=== PATIENT | male | born 1965 | race Caucasian/White ===

== ENCOUNTER 2023-03-16 19:13 | Emergency (ER) | payer MEDICARE, SELFPAY ==
[2023-03-16 19:13] VITALS: BP 163/119; PULSE 121; RESP 16; TEMP 36.8; O2SAT 96; BMI 31.3
--- NOTE | 2023-03-16 19:20 | ECG_ITS ---
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 Measurements Intervals [place] Rate: 114 P: 55 IA: 151 QRS: 61 QRSD: 86 T: 66 QT: 310 QTc: 427 Interpretive Statements SINUS TACHYCARDIA No previous ECG available for comparison Electronically Signed On 03-16-2023 20:24:07 CDT by Negrito Proctor M.D. [id number]
--- NOTE | 2023-03-16 19:20 | XRR_ITS ---
PROCEDURE INFORMATION: Exam: XR Chest Exam date and time: 03/16/2023 7:36 PM Age: 57 years old Clinical indication: Pain; Chest pressure; Additional info: Cp TECHNIQUE: Imaging protocol: Radiologic exam of the chest. Views: 1 view. COMPARISON: No relevant prior studies available. FINDINGS: Lungs: Unremarkable. No consolidation. Pleural spaces: Unremarkable. No pleural effusion. No pneumothorax. Heart/Mediastinum: Unremarkable. No cardiomegaly. Bones/joints: Unremarkable. XR/XR chest 1V portable 18500 IMPRESSION: No acute findings.
--- NOTE | 2023-03-16 19:28 | ED_ITS ---
HPI - Chest Pain General: Chief Complaint: Chest Pain Stated Complaint: CP Time Seen by Provider: 03/16/23 19:21 History of Present Illness: Patient is a 57-year-old male comes to the ED with chest pain. Symptoms started last night while at rest. Patient says he was sitting on his porch and drinking some alcohol. He states that he got upset a little with his and that is when his chest pain started. He describes the chest pain as a pressure. He took a nitro today it was still having some chest pressure and then called EMS. EMS gave him 325 mg of aspirin and 2 doses of nitro while in route and his chest pain is completely resolved. Here in the ED he states he has no chest pain or chest pressure. Denies any shortness of breath, palpitations, fevers, chills, abdominal pain, nausea/vomiting, bladder or bowel symptoms. Patient is a tobacco smoker and has a [id number] history. Patient also endorses that he smokes marijuana daily and used marijuana last night. Has a history of hypertension and states that he does not have any blood pressure medications. Patient also states that he has had 5 cardiac stents placed a little over a year ago while down in [place]. Associated symptoms: Deny abdominal pain, dyspnea, fever(s), nausea, palpitations or vomiting Review of Systems Const: Denies: fever(s), chills or fatigue Eyes: Denies: change in vision or eye discomfort ENMT: Denies: throat pain, odynophagia, nasal discharge or nasal congestion Card: Reports: chest pain (Resolved before arriving to ED); Denies: palpitations, edema, swelling of feet/ankles, dyspnea on exertion or orthopnea Resp: Denies: dyspnea, productive cough or non-productive cough GI: Denies: abdominal pain, nausea, vomiting, diarrhea, constipation or hematochezia : Denies: flank pain, difficulty urinating, dysuria or hematuria Musc: Denies: neck pain, back pain or extremity swelling Skin/Breast: Denies: rash or new lesions Neuro: Denies: headache(s), numbness in extremities or weakness in extremities [facility] ED PFSH: Medical History Hypertension Surgical History Hx of heart artery stent Physical Exam Const: COMMON NORMALS: patient oriented x3 and alert GENERAL APPEARANCE: cooperative HENMT: COMMON NORMALS: normocephalic HEAD & SCALP: normocephalic MOUTH: Normal oral and palatal mucosa present THROAT: posterior oropharynx normal and uvula midline Neck/C-Spine: COMMON NORMALS: supple GENERAL: Yes normal visual inspection Resp: COMMON NORMALS: normal respiratory effort, No retractions, No use of accessory muscles and clear to auscultation bilaterally AUSCULTATION: clear to auscultation bilaterally Cardio: COMMON NORMALS: regular rate, regular rhythm, S1 normal heart sound present, S2 normal heart sound present, No gallops present (Cardio), No clicks present (Cardio), No murmurs present (Cardio) and Peripheral pulses 2+ throughout RATE: regular rate RHYTHM: regular rhythm HEART SOUNDS: S1 normal heart sound present and S2 normal heart sound present PERIPHERAL PULSE S: Peripheral pulses 2+ throughout GI: COMMON NORMALS: Normal to inspection, nondistended, normoactive bowel sounds present, Soft to palpation, non-tender and no masses PALPATION: Yes Soft to palpation : COMMON NORMALS: Yes no CVA tenderness BLADDER/KIDNEY EXAM: Yes no CVA tenderness Back/Pelvis: COMMON NORMALS: no CVA tenderness Extremity: COMMON NORMALS: normal to inspection Neuro: COMMON NORMALS: patient oriented x3 SENSORIUM/ORIENTATION: Yes alert GAIT: Yes Normal gait present Skin: GENERAL SKIN EXAM: dry skin Course Vital Signs: Vital signs: Vital Signs Temperature 98.2 F 03/16/23 19:13 Pulse Rate 94 03/16/23 22:35 Respiratory Rate 16 03/16/23 22:35 Blood Pressure 129/86 03/16/23 22:35 Pulse Oximetry 96 03/16/23 22:35 Oxygen Delivery Me thod Room Air 03/16/23 22:35 MDM - Chest Pain Medical Decision Making Patient is a 57-year-old male comes to the ED with chest pain. Symptoms started last night while at rest. Patient says he was sitting on his porch and drinking some alcohol. He states that he got upset a little with his and that is when his chest pain started. He describes the chest pain as a pressure. He took a nitro today it was still having some chest pressure and then called EMS. EMS gave him 325 mg of aspirin and 2 doses of nitro while in route and his chest pain is completely resolved. Here in the ED he states he has no chest pain or chest pressure. Denies any shortness of breath, palpitations, fevers, chills, abdominal pain, nausea/vomiting, bladder or bowel symptoms. Patient is a tobacco smoker and has a [id number] history. Patient also endorses that he smokes marijuana daily and used marijuana last night. Has a history of hypertension and states that he does not have any blood pressure medications. Patient also states that he has had 5 cardiac stents placed a little over a year ago while down in [place]. Vitals are stable. Exam of patient is benign. CBC and CMP are unremarkable. Troponins negative. EKG showed sinus tachycardia in 105 bpm, no ST segment elevation or depression seen. BNP was normal. Patient u rine drug screen was positive for marijuana and blood alcohol level was 256. Patient was given half a liter of IV fluids and was stable for discharge home. He was diagnosed with atypical chest pain and was discharged home with a prescription for Vistaril for acute anxiety. He was given strict return to ED precautions. Told to follow-up with his PCP within the next week for reevaluation. Patient understood and agreed with plan. Lab Data I reviewed the patient's lab results. 03/16/23 19:20 03/16/23 19:20 Radiology Impressions Chest X-Ray 03/16/23 19:20 IMPRESSION: No acute findings. Laboratory Results WBC 7.9 10^3/uL (4.0-10.0) 03/16/23 19:20 RBC 4.45 10^6/uL (4.1-5.3) 03/16/23 19:20 Hgb 14.5 g/dL (11.7-16.6) 03/16/23 19:20 Hct 44.1 % (42.0-52.0) 03/16/23 19:20 MCV 99.1 fl (80-94) H 03/16/23 19:20 MCH 32.6 pg (28.0-34.0) 03/16/23 19:20 MCHC 32.9 g/dL (30.0-36.0) 03/16/23 19:20 RDW 14.2 % (12.1-15.1) 03/16/23 19:20 Plt Count 285 10^3/cmm (130-400) 03/16/23 19:20 MPV 8.9 fL (7.4-10.4) 03/16/23 19:20 Neut % (Auto) 48.7 % 03/16/23 19:20 Lymph % (Auto) 42.3 % 03/16/23 19:20 [place] % (Auto) 6.6 % 03/16/23 19:20 Eos % (Auto) 1.8 % 03/16/23 19:20 Baso % (Auto) 0.5 % 03/16/23 19:20 Neut # (Auto) 3.83 10^3/uL (1.8-7.7) 03/16/23 19:20 Lymph # (Auto) 3.3 10^3/uL (0.8-4.8) 03/16/23 19:20 [place] # (Auto) 0.5 10^3/uL (0.2-0.9) 03/16/23 19:20 Eos # (Auto) 0.1 10^3/uL (0.0-0.8) 03/16/23 19:20 Baso # (Auto) 0.0 10^3/uL (0.0-0.1) 03/16/23 19:20 Nucleated RBC % (auto) 0 % 03/16/23 19: Nucleated RBCs # 0.0 /100WBC 03/16/23 19:20 Sodium 141 mmol/L (136-145) 03/16/23 19:20 Potassium 4.1 mmol/L (3.5-5.1) 03/16/23 19:20 Chloride 104 mmol/L (98-107) 03/16/23 19:20 Carbon Dioxide 23 mmol/L (22-29) 03/16/23 19:20 Anion Gap 18.1 (5-19) 03/16/23 19:20 BUN 10 mg/dL (6-20) 03/16/23 19:20 Creatinine 1.0 mg/dL (0.7-1.2) 03/16/23 19:20 GFR Calculation 77.0 mL/min (90-130) L 03/16/23 19:20 Glucose 78 mg/dL (65-115) 03/16/23 19:20 Calculated Osmolality 290 mOsm/kg (285-295) 03/16/23 19:20 Calcium 8.7 mg/dL (8.5-10.5) 03/16/23 19:20 Total Bilirubin 0.2 mg/dL (0.15-1.2) 03/16/23 19:20 AST 31 U/L (0-40) 03/16/23 19:20 ALT 36 U/L (0-41) 03/16/23 19:20 Alkaline Phosphatase 84 U/L (40-130) 03/16/23 19:20 Troponin T Baseline 9 ng/L (0-15) 03/16/23 19:20 Troponin T 120 Minute 9.09 ng/L (0-15) 03/16/23 22:13 Delta Troponin T 0.09 ABS# (0-10) 03/16/23 22:13 NT-Pro-B Natriuret Pep 36 pg/mL (0-125) 03/16/23 19:20 Total Protein 6.8 g/dL (6.6-8.7) 03/16/23 19:20 Albumin 4.1 g/dL (3.5-5.2) 03/16/23 19:20 Globulin 2.7 g/dL (1.3-4.6) 03/16/23 19:20 Urine Color Yellow (Yellow) 03/16/23 20: Urine Appearance Clear (CLEAR) 03/16/23 20:01 Urine pH 5 (5-7) 03/16/23 20:01 Ur Specific [place] 1.030 (1.005-1.030) 03/16/23 20:01 Urine Protein Neg (Negative) 03/16/23 20:01 Urine Glucose (UA) Norm (Normal) 03/16/23 20:01 Urine Ketones Negative (Negative) 03/16/23 20:01 Urine Blood Neg (Negative) 03/16/23 20:01 Urine Nitrate Negative (Negative) 03/16/23 20: Urine Bilirubin Neg (Negative) 03/16/23 20: Urine Urobilinogen Norm mg/dL (Negative) 03/16/23 20:01 Ur Leukocyte Esterase Negative (Negative) 03/16/23 20:01 Urine Opiates Screen Negative ng/mL (Negative) 03/16/23 20: Ur Barbiturates Screen Negative ng/mL (Negative) 03/16/23 20:01 Ur Phencyclidine Scrn Negative ng/mL (Negative) 03/16/23 20:01 Ur Amphetamines Screen Negative ng/mL (Negative) 03/16/23 20:01 U Benzodiazepines Scrn Negative ng/mL (Negative) 03/16/23 20:01 Urine Cocaine Screen Negative ng/mL (Negative) 03/16/23 20:01 U Marijuana (THC) Screen Positive ng/mL (Negative) H 03/16/23 20:01 Ethyl Alcohol 256 mg/dL (0-10) H 03/16/23 19:20 EKG Data EKG 1: EKG interpretation date: 03/16/23 Interpretation: Sinus tachycardia, 105 bpm, no ST segment elevation or depression seen. Discharge Plan Discharge Patient Disposition: Home Clinical Impression: Atypical chest pain Condition: Stable Prescriptions: New hydroxyzine pamoate 50 mg capsule 50 mg PO Q8H PRN (Reason: Acute anxiety) Qty: 20 0RF Discharge Orders: Discharge ED (Routine); Ordered 03/16/23 Ordered By: Cale Palomares Referrals: Lenard Pedro DO [Primary Care Provider] - Discharge Diet: Regular Discharge Activity: Increase activity as tolerated Patient Instructions: Chest Pain (ED) Activity Restrictions/Additional Instructions: Follow-up with medical provider as directed in the next 3 to 5 days for reevaluation. Take medications as prescribed. Return to the ER or your medical provider if condition worsens. Please read and understand discharge instructions. Thank you for choosing [facility] for your healthcare needs today. Please realize this is an emergency room and that we are providing you with a medical screening exam and this may not be complete and all inclusive of all the testing and or work up that you may need to determine your ailment or severity of your illness. It is very important that you follow up as instructed or that you return to the Emergency Department should you have concerns or if your condition changes or worsens in any way. Coding Level of Care Code ED Packaging Mechanic for Ryan Pratt
[2023-03-16 19:33] LABS: Basophils % 0.5 %; Eosinophils # 0.1 10^3/uL (0.0-0.8); Eosinophils % 1.8 %; Hematocrit 44.1 % (42.0-52.0); Hemoglobin 14.5 g/dL (11.7-16.6); Lymphocytes # 3.3 10^3/uL (0.8-4.8); Lymphocytes % 42.3 %; Mean Corpuscular HGB Conc 32.9 g/dL (30.0-36.0); Mean Corpuscular Hemoglobin 32.6 pg (28.0-34.0); Mean Corpuscular Volume 99.1 fl (80-94); Mean Platelet Volume 8.9 fL (7.4-10.4); Monocytes # 0.5 10^3/uL (0.2-0.9); Monocytes % 6.6 %; Neutrophils # 3.83 10^3/uL (1.8-7.7); Neutrophils % 48.7 %; Nucleated Red Blood Cells % 0 %; Platelet Count 285 10^3/cmm (130-400); Red Blood Count 4.45 10^6/uL (4.1-5.3); Red Cell Distribution Width 14.2 % (12.1-15.1); White Blood Count 7.9 10^3/uL (4.0-10.0)
[2023-03-16 19:46] LABS: Troponin(5th) Baseline 9 ng/L (0-15)
[2023-03-16 19:48] VITALS: BP 163/119; PULSE 119; RESP 16; O2SAT 96
[2023-03-16 19:56] LABS: Alanine Aminotransferase 36 U/L (0-41); Albumin Level 4.1 g/dL (3.5-5.2); Alkaline Phosphatase 84 U/L (40-130); Anion Gap 18.1 (5-19); Aspartate Amino Transferase 31 U/L (0-40); Blood Urea Nitrogen 10 mg/dL (6-20); Calcium 8.7 mg/dL (8.5-10.5); Carbon Dioxide 23 mmol/L (22-29); Chloride 104 mmol/L (98-107); Globulin 2.7 g/dL (1.3-4.6); Glucose 78 mg/dL (65-115); NT Pro B Type Natriuretic Pept 36 pg/mL (0-125); Osmolality Calculated 290 mOsm/kg (285-295); Potassium 4.1 mmol/L (3.5-5.1); Sodium 141 mmol/L (136-145); Total Bilirubin 0.2 mg/dL (0.15-1.2); Total Protein 6.8 g/dL (6.6-8.7)
[2023-03-16 20:06] LABS: Add Urine Microscopic? NO; Charge for UA Resulting for Rev
[2023-03-16 20:08] LABS: Bilirubin Urine Neg (Negative); Blood Urine Neg (Negative); Glucose Urine UA Norm (Normal); Ketones Urine Negative (Negative); Leukocyte Esterase Urine Negative (Negative); Nitrate Urine Negative (Negative); Protein Urine Neg (Negative); Urine Appearance Clear (CLEAR); Urine Color Yellow (Yellow); Urobilinogen Urine Norm (Negative); pH Urine 5 (5-7)
[2023-03-16 20:12] LABS: Alcohol Level 256 mg/dL (0-10)
[2023-03-16 20:18] LABS: Amphetamines Screen Urine Negative (Negative); Barbiturates Screen Urine Negative (Negative); Benzodiazepines Screen Urine Negative (Negative); Cocaine Screen Urine Negative (Negative); Opiate Screen Urine Negative (Negative); PCP Screen Urine Negative (Negative); THC Screen Urine Positive (Negative)
--- NOTE | 2023-03-16 21:20 | ECG_ITS ---
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 Measurements Intervals [place] Rate: 105 P: 62 DE: 153 QRS: 67 QRSD: 96 T: 69 QT: 330 QTc: 437 Interpretive Statements SINUS TACHYCARDIA Compared to ECG 03/16/2023 19:20:37 No significant changes Electronically Signed On 03-16-2023 20:24:41 CDT by Negrito Proctor M.D. [id number]
--- NOTE | 2023-03-16 21:43 | PC.NURSE ---
pt refusing cardiac monitoring
[2023-03-16 22:35] VITALS: BP 129/86; PULSE 94; RESP 16; O2SAT 96
[2023-03-16 22:43] LABS: Troponin 5 2HR 9.09 ng/L (0-15)
[2023-03-16 22:44] LABS: Troponin 5 2HR Delta 0.09 ABS# (0-10)
== END 2023-03-16 23:03 | disposition home or self-care (01) ==
PROVIDERS: Emergency Provider Physician Assistant; PCP Family Medicine
DX: R07.89 Other chest pain (principal)
CPT/HCPCS: 71045; 80053; 80306; 80307; 81003; 83880; 84484; 85025; 93005; 96360; 99285

== ENCOUNTER 2025-04-08 07:30 | Emergency (ER) | payer MEDICARE, MEDICAID, SELFPAY ==
[2025-04-08] VITALS (45 sets, daily range): BP systolic 130–171; BP diastolic 90–100; PULSE 95–137; RESP 12–33; TEMP 36.8; O2SAT 92–100
--- NOTE | 2025-04-08 07:35 | XR_ITS ---
WS: [id number] Portable AP upright chest, 04/08/2025 Clinical Data: dyspnea/cough Comparison: Portable chest, 03/16/2023 Findings: No nodules, masses or effusions are seen. The heart is normal. The pulmonary vascularity is not increased. No pneumonia or pneumothorax is seen. Monitor leads are on the chest wall. The aortic arch and descending thoracic aorta show tortuosity. XR/XR chest 1V portable [id number] Impression: Atherosclerosis.
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
[2025-04-08] MEDS: LORazepam 1 MG/0.5 ML injection 2 MG IVP (08:13)
[2025-04-08 08:25] LABS: Alanine Aminotransferase 13 U/L (0-41); Albumin Level 4.8 g/dL (3.5-5.2); Alkaline Phosphatase 97 U/L (40-130); Aspartate Amino Transferase 25 U/L (0-40); Blood Urea Nitrogen 17 mg/dL (6-20); Calcium 9.1 mg/dL (8.5-10.5); Carbon Dioxide 20 mmol/L (22-29); Chloride 96 mmol/L (98-107); Globulin 3.2 g/dL (1.3-4.6); Glomerular Filtration Rate 47.9 mL/min (90-130); Glucose 118 mg/dL (65-115); Osmolality Calculated 287 mOsm/kg (285-295); Sodium 137 mmol/L (136-145); Total Bilirubin 1.1 mg/dL (0.15-1.2)
[2025-04-08 08:36] LABS: Alcohol Level < 10 mg/dL (0-10)
[2025-04-08 08:53] LABS: Basophils % 0.2 %; Hematocrit 39.2 % (37-53); Lymphocytes # 0.9 10^3/uL (0.8-4.8); Lymphocytes % 8.3 %; Mean Corpuscular HGB Conc 33.9 g/dL (30-55); Mean Corpuscular Hemoglobin 32.4 pg (27-33); Mean Corpuscular Volume 95.4 fl (82-101); Mean Platelet Volume 8.9 fL (7.4-10.4); Monocytes # 0.8 10^3/uL (0.2-0.9); Monocytes % 7.2 %; Neutrophils # 9.15 10^3/uL (1.8-7.7); Neutrophils % 83.9 %; Nucleated Red Blood Cells % 0 %; Platelet Count 308 10^3/cmm (157-399); Red Blood Count 4.11 10^6/uL (3.85-5.65); Red Cell Distribution Width 14.5 % (12.1-15.1); White Blood Count 10.89 10^3/uL (3.29-11.43)
[2025-04-08] MEDS: iohexol 350 mg/mL 500 mL Btl (per mL) IV (08:55)
[2025-04-08] MEDS: sodium chloride 0.9% 1,000 ML 999 ML IV ×2 (09:26→09:27)
[2025-04-08 09:47] LABS: Bilirubin Urine Negative (Negative); Blood Urine 1+ (Negative); Glucose Urine UA Negative (Normal); Ketones Urine 3+ (Negative); Leukocyte Esterase Urine Negative (Negative); Nitrate Urine Negative (Negative); Protein Urine 2+ (Negative); Specific Gravity, Urine 1.021 (1.005-1.030); Urine Appearance Clear (CLEAR); pH Urine 5.5 (5-7)
[2025-04-08 09:52] LABS: Add Urine Microscopic? YES; Bacteria Urine None Seen /hpf; Hyaline Casts Urine 1.65 /lpf; RBC Urine 0-2 /hpf (0-2); Squamous Epithelial Cell Urine 0-5 /hpf (0-5); WBC Urine 0-5 /hpf (0-5)
[2025-04-08 09:53] LABS: Amphetamines Screen Urine Positive (Negative); Barbiturates Screen Urine Negative (Negative); Benzodiazepines Screen Urine Negative (Negative); Cocaine Screen Urine Negative (Negative); Opiate Screen Urine Negative (Negative); PCP Screen Urine Negative (Negative); THC Screen Urine Positive (Negative)
[2025-04-08 10:06] LABS: Urine Color Orange (Yellow)
[2025-04-08 11:08] LABS: Anion Gap 23.1 (5-19); Blood Urea Nitrogen 15 mg/dL (6-20); Calcium 8.7 mg/dL (8.5-10.5); Carbon Dioxide 17 mmol/L (22-29); Chloride 102 mmol/L (98-107); Glomerular Filtration Rate 68.5 mL/min (90-130); Glucose 105 mg/dL (65-115); Osmolality Calculated 287 mOsm/kg (285-295); Potassium 4.1 mmol/L (3.5-5.1); Sodium 138 mmol/L (136-145)
--- NOTE | 2025-04-08 15:47 | ECG_ITS ---
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 Measurements Intervals [place] Rate: 120 P: 249 MS: 171 QRS: 57 QRSD: 85 T: 62 QT: 326 QTc: 461 Interpretive Statements SINUS TACHYCARDIA Compared to ECG 03/16/2023 20:15:23 No significant changes Electronically Signed On 04-09-2025 15:11:14 CDT by Negrito Proctor M.D. [email or web address] [id number]
== END 2025-04-08 11:27 | disposition home or self-care (01) ==
PROVIDERS: Emergency Provider Family Medicine; PCP Family Medicine
DX: F19.10 Other psychoactive substance abuse, uncomplicated (principal); R10.9 Unspecified abdominal pain; I10 Essential (primary) hypertension; I25.10 Atherosclerotic heart disease of native coronary artery without angina pectoris; Z95.5 Presence of coronary angioplasty implant and graft; V89.2XXA Person injured in unspecified motor-vehicle accident, traffic, initial encounter; Y92.413 State road as the place of occurrence of the external cause; Z79.899 Other long term (current) drug therapy
CPT/HCPCS: 36415; 70450; 71045; 71260; 72125; 74177; 80048; 80053; 80306; 80307; 81001; 85025; 93005; 96361; 96374; 99285; J2060; J7030

== ENCOUNTER 2025-04-09 05:05 | Inpatient (IN) | payer MEDICARE, MEDICAID, SELFPAY ==
--- OUTSIDE RECORDS SUMMARY | 2025-04-02 10:30 | XMS_ITS | Encounter Summary ---
[facility] Address [address] [place] [address] Care Team Providers Care [employer] Name Role Phone Zachary Arroyo MD Primary Care Provider Reason for Referral * Outpatient Services (Routine) - Open Specialty Diagnoses / Procedures Referred By Anaid house Referred To Contact Diagnoses Cervical stenosis of spinal canal Cervical radiculitis Neuroforaminal stenosis of cervical spine Procedures EPIDURAL STEROID INJECTION, CERVICAL/THORACIC Edgardo Tellez MD [address] [place] [address] Phone: tel: fax: Referral ID Status Reason Start Date Expiration Date Visits Requested Visits Authorized [id number] Open [facility] Department to Schedule 04/02/2025 05/03/2026 1 1 Reason for Visit * Reason Comments Neck Pain * Eval and Treat (Routine) - Open Specialty Diagnoses / Procedures Referred By Contac t Referred To Contact Pain Management Diagnoses Foraminal stenosis of cervical region Chronic neck pain Procedures IN OFFICE/OUTPATIENT ESTABLISHED MOD MDM 30 MIN IN OFFICE/OUTPATIENT NEW MODERATE MDM 45 MINUTES Armaan Bucio, [employer] [address] [place] [address] Phone: tel: fax: [facility] [address] [place] [address] [address] [place] [address] Phone: tel: fax: Referral ID Status Reason Start Date Expiration Date Visits Re quested Visits Authorized [id number] Open 03/19/2025 03/19/2026 1 1 Encounter Details Date Type Department Care Team (Latest Contact Info) Description 04/02/2025 10:30 AM CDT Office Visit [facility] [address] [place] [address] [address] [place] [id number] Edgardo Tellez MD [address] [place] [place] [address] Cervical stenosis of spinal canal (Primary Dx); Cervical radiculitis; Neuroforaminal stenosis of cervical spine; Cervical spondylosis without myelopathy; Pain of cervical facet joint; Lumbosacral spondylosis without myelopathy; Lumbar facet joint pain; Discogenic low back pain; Degeneration of intervertebral disc of lumbosacral region with discogenic back pain; Degeneration of intervertebral disc of lumbar region with discogenic back pain Social History Tobacco Use Types Packs/Day Years Used Date Smoking Tobacco: Every Day Cigarettes Smokeless Tobacco: Never Alcohol Use Standard Drinks/Week Comments Not Currently 0 (1 standard drink = 0.6 oz pur e alcohol) Feeling Safe Answer Date Recorded Are you in a relationship wi th someone who hurts you emotionally and/or physically? 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 History and Physical This consultation was requested by: Armaan Bucio, [employer] [address] [facility] [address] [place] [address] : 1965 HPI: Remy Araya is a 59 y.o. male who presents with: Patient reports pain is in the neck . Radiates down arms. Feels it is caused by arthritis Started becoming serious 15 yrs ag0 + back pain Does not radiate down legs. H/o back surgery ~2008 Causes pain often. Described as burning, aching, +n/t sharp. Constant, sometimes mild, sometimes severe Currently rated 4/10; 3/10 at best; 8/10 at worst Worse with sitting, walking, lifting. Better with laying down. Has had the following tests: XR, MRI Currently taking I reviewed the Body Chart form the patient filled out today as well regarding their condition that was uploaded to the chart. 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 Current Outpatient Medications: gabapentin (NEURONTIN) 100 mg capsule, Take 3 capsules up to three times a day., Disp: 270 Capsule,Rfl: 1 baclofen (LIORESAL) 10 mg tablet, TAKE 1 TABLET(10 MG) BY MOUTH DAILY AT BEDTIME, Disp: 30 Tablet, Rfl: 3 metoprolol succinate (TOPROL XL) 25 mg Extended Release 24 hour tablet, Take 1 Tablet (25 mg) by mouth daily., Disp: 90 Tablet, Rfl: 3 nitroglycerin (NITROSTAT) 0.4 mg Tablet, Sublingual, DISSOLVE ONE TABLET UNDER TONGUE NEEDED FORCHEST PAIN EVERY 5 MINUTES, Disp: 100 Tablet, Rfl: 1 amLODIPine-valsartan (EXFORGE) 10-160 mg Tablet, TAKE 1 TABLET BY MOUTH DAILY, Disp: 100 Tablet, Rfl: 3 atorvastatin (LIPITOR) 40 mg tablet, Take 1 Tablet (40 mg) by mouth daily., Disp: 90 Tablet, Rfl: 3 Brilinta 90 mg Tablet, TAKE 1 TABLET(90 MG) BY MOUTH TWICE DAILY, Disp: 90 Tablet, Rfl: 3 aspirin (ECOTRIN EC) 81 mg Tablet, Delayed Release (E.C.), Take 1 Tablet (81 mg) by mouth daily., Disp: 90 Tablet, Rfl: 3 Allergy: Patient has no known allergies. Family Hx: Family History Problem Relation Name Age of Onset Heart Disease Father Other Mother Soc/Functional Hx: Social History Socioeconomic History Marital status: Spouse name: Not on file Number of children: Not on file Years of education: Not on file Highest education level: Not on file Occupational History Not on file Tobacco Use Smoking status: Every Day Current packs/day: 0.50 Types: Cigarettes Smokeless tobacco: Never Vaping Use Vaping status: Never Used Substance and Sexual Activity Alcohol use: Not Currently Drug use: Not Currently Types: Marijuana Comment: smokes Sexual activity: Yes Partners: Female control/protection: None Other Topics Concern Not on file Social History Narrative Not on file Social Drivers of Health Food Insecurity: Not on file Transportation Needs: Not on file Feeling Safe: Not At Risk (12/30/2023) Feeling Safe Patient has indicated abuse: : No Housing Stability: Not on file Physical Examination: BP 118/64 Ht 5' 8 (1.727 m) Wt 93 kg (205 lb) BMI 31.17 kg/m?? BMI = Body mass index is 31.17 kg/m??. GEN: sitting on exam chair, NAD, pleasant, interactive, older male, [facility] HEENT: NC/AT, EOMI, mmm, garcia, mustache is smoke stained RESP: no respiratory distress at rest CV: good radial pulses, RRR, ABD: soft, ND EXT: no c/c/e PSYCH: nl affect SKIN: no lesions or rashes BUE skin palpation: hands/arms warm to the touch BLE skin palpation: no pretibial edema, warm to the touch NEURO: A&O, CN 2-12 grossly intact, moving all limbs purposefully, Sensation intact to light touch to bilat ULs MSK: Inspection: no obvious asymmetry, upper limb atrophy or deformity. + tenderness to palpation over cervical paraspinals, trapezius and levator scapulae. Cerv ROM: neutral preference (pain flares with ext/rot, flexion). Limited due to pain. 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 Limited due to pain. Flexion 80, extension 10, rotation 15 Reflexes: 1+ bilateral biceps, 1+ brachioradialis, 0-1+ bilateral patellar, Tone: normal Hoffmans: negative bilaterally Ankle clonus: none SLR: neg with LLE, neg with RLE Slump test: neg with LLE, neg with RLE Facet-loading (ext with rotation): + on L, + on R Gait: stiff Diagnostic studies (I personally viewed the images with the pt): Radiology results: Exam: MRI CERVICAL WO CONTRAST Date/Time of Exam: 03/03/2025 5:06 PM Reason For Exam: foraminal stenosis. Diagnosis: Foraminal stenosis of cervical region. Technique: MRI of the cervical spine was performed without the administration of intravenous contrast. Findings: There is slight anterolisthesis at C7-T1. There is marrow edema within the C5, C6, C7 vertebral bodies which appears degenerative in nature. No abnormal cord signal. C2-3: Small disc protrusion and facet arthropathy, otherwise unremarkable. C3-4: Shallow disc protrusion, uncovertebral osteophytes, facet arthropathy. Moderate spinal stenosis, moderate right foraminal narrowing, and severe left foraminal narrowing. C4-5: Shallow disc protrusion, uncovertebral osteophytes, facet arthropathy. Moderately spinal stenosis, moderate left foraminal narrowing, and severe right foraminal narrowing. C5-6: Broad-based disc protrusion and uncovertebral osteophytes with moderate spinal stenosis and severe bilateral foraminal narrowing. C6-7: Broad-based disc protrusion and uncovertebral osteophytes with moderate spinal stenosis and severe bilateral foraminal narrowing. C7-T1: Severe facet joint hypertrophy with mild left and moderate right foraminal narrowing. The visualized paraspinous soft tissues are unremarkable. IMPRESSION: 1. Multilevel moderate spinal stenosis. No abnormal cord signal. 2. Several foramina are severely narrowed which may impinge the nerves within these foramina. See findings above for further details Exam: XR CERVICAL SPINE 2 OR 3 VIEWS Date/Time of Exam: 01/19/2025 10:11 AM Reason For Exam: See Diagnosis. Diagnosis: Acute cervical radiculopathy. Comparison: None FINDINGS: Frontal, lateral, swimmer's and odontoid projections show straightened lordosis. Slight degenerative anterior subluxation C4-5. Moderate disc degeneration at C3-4. Moderate to prominent disc degeneration C6-7 and C7-T1. Moderate to prominent diffuse facet arthropathy. Prevertebral soft tissues are within normal limits L spine XR 01/19/25 Lab Results Component Value Date/Time NA 140 01/19/2025 10:11 AM K 4.3 01/19/2025 10:11 AM CL 105 01/19/2025 10:11 AM CO2 26 01/19/2025 10:11 AM CA 9.6 01/19/2025 10:11 AM BUN 13 01/19/2025 10:11 AM CREAT 1.04 01/19/2025 10:11 AM GLUCOSE 93 01/19/2025 10:11 AM BCRATIO SEE NOTE: 01/19/2025 10:11 AM Lab Results Component Value Date/Time ALT 9 01/19/2025 10:11 AM AST 10 01/19/2025 10:11 AM ALKPHOS 77 01/19/2025 10:11 AM Lab Results Component Value Date/Time WBC 7.7 01/19/2025 10:11 AM HGB 13.4 01/19/2025 10:11 AM HCT 41.3 01/19/2025 10:11 AM PLT 303 01/19/2025 10:11 AM MCV 100.5 (H) 01/19/2025 10:11 AM No results found for: INR , PT , PROTIMEPOC No results found for: ESR , ESRPOC No results found for: CRP , CRPHS Lab Results Component Value Date/Time HGBA1C 5.5 01/19/2025 10:11 AM Assessment: ICD-10-CM ICD-9-CM 1. Cervical stenosis of spinal canal M48.02 723.0 EPIDURAL STEROID INJECTION, CERVICAL/THORACIC triamcinolone acetonide (KENALOG-40) injectable suspension 80 mg Iopamidol (ISOVUE-M 300) 300 mg iodine /mL (61 %) injection 0-15 mL 2. Cervical radiculitis M54.12 723.4 EPIDURAL STEROID INJECTION, CERVICAL/THORACIC triamcinolone acetonide (KENALOG-40) injectable suspension 80 mg Iopamidol (ISOVUE-M 300) 300 mg iodine /mL (61 %) injection 0-15 mL 3. Neuroforaminal stenosis of cervical spine M48.02 723.0 EPIDURAL STEROID INJECTION, CERVICAL/THORACIC triamcinolone acetonide (KENALOG-40) injectable suspension 80 mg Iopamidol (ISOVUE-M 300) 300 mg iodine /mL (61 %) injection 0-15 mL 4. Cervical spondylosis without myelopathy M47.812 721.0 5. Pain of cervical facet joint M54.2 723.1 6. Lumbosacral spondylosis without myelopathy M47.817 721.3 7. Lumbar facet joint pain M54.59 719.48 8. Discogenic low back pain M51.360 724.2 9. Degeneration of intervertebral disc of lumbosacral region with discogenic back pain M51.370 722.52 10. Degeneration of intervertebral disc of lumbar region with discogenic back pain M51.360 722.52 Plan: - Discussed the diagnoses with the patient with the aid of models today - Encouraged and educated the patient about continuing to perform their usual activities of daily living and to avoid prolonged rest as a means for pain control. - Discussed different pain generators in the spine - muscles/ligaments, bones/facet joints/SI joints, nerves, discs, stenosis, etc. - Independently Viewed imaging Today in detail with patient which shows: Straightening of cervical lordosis, mod/adv DDD/degenerative endplate changes; +facet arthropathy; andi hypertrophy L C3-4 and C4-5; mod spinal stenosis C3/4, mild/mod C4-5; mod C5/6 C6/7; +lumbar DDD/disc height loss/degenerative endplate changes; +facet arthropathy, slight curvature - recommend C7T1 ILESI x1 to start - may need decompression in future - if not, consider cervical and lumbar mbbs for possible RFA - We discussed discogenic pain - pain that is centralized, worse with forward flexion and seated positions, better with laying flat or standing positions. We discussed the importance of behavior modifications to prevent exacerbation of the symptoms. We spoke about spine unloading positions and exercises programs such as Yoga, Pilates, and water therapy. We also talked about weight management and how that plays an important role in overall spine health. - This pain is moderate to severe, has been present >3 months, and has failed to respond to conservative measures for at least 4 wks including rest, ice, heat, HEP from pcp. - OSWESTRY DISABILITY INDEX Section 1: Pain Intensity The pain is bad but I manage without taking pain killers (1) Section 2: Personal Care I can look after myself normally but it causes extra pain (1) Section 3: Lifting Pain prevents me lifting heavy weights off the floor by I can manage if they are conveniently placed eg. on a table (2) Section 4:Walking Pain prevents me from walking more than 1 mile (1) Section 5: Sitting I can sit in any chair as long as I like (0) Section 6: Standing I can stand as long as I want but it gives me extra pain (1) Section 7: Sleeping My sleep is occasionally disturbed by pain (1) Section 8: Social Life My social life is normal but increases the degree of pain (1) Section 9: Traveling I can travel anywhere but it gives me extra pain (1) Section 10: Work/Homemaking I can perform most of my homemaking/ job duties, but pain prevents me from performing more physically stressful activities (2) Total DAE for patient is cumulative score above multiplied by a factor of 2 DAE for Remy Araya is 22% DAE SCORIN% to 20%: minimal disability - usually a patient can cope with most living activities. 21%-40%: moderate disability - Often patients may experience more pain and difficulty with sitting,lifting, standing, and functional activities. Travel and social life may be restricted and they maybe disabled from work. 41%-60%: severe disability: Pain remains the main problem in this group and activities of daily living are affected. These patients require a detailed investigation and treatments. 61%-80%: crippled: Back pain impinges on all aspects of the patient's life. Positive intervention is required. 81%-100%: These patients are normally either bed-bound or exaggerating their symptoms. - TOBACCO COUNSELING He was counseled to discontinue tobacco/nicotine use. The patient had all of his questions answered to satisfaction and was discharged home in good condition. Thank you very much for the referral of this very pleasant patient to [facility]. I look forward to working with him in the near future. Edgardo Tellez MD Physical Medicine and Rehabilitation Interventional Pain Management ???If you are reading your progress note, please be aware that this is meant as a communication from physician to physician and there may be terminology that is unfamiliar to you. If you find that isthe case or you disagree with anything in my note, kindly wait until your next appointment to discuss with me. However, understand that changes to the note will only be made if information is factuall y an error. Also, clinical information cannot be removed from the medical records in order to withhold information from insurance companies. In addition, please understand that I am not at liberty todiscuss progress notes written by other providers. documented in this encounter Miscellaneous Notes * Patient Instructions - Cat Ge - 04/02/2025 11:18 AM CDT Images from the original note were not included. [facility] 248 Cervical Epidural Steroid Injection (LAURIE) What is a LAURIE? A Cervical epidural steroid injection is the injection of a small amount of anti-inflammatory medication into the epidural space. These injections are intended to decrease inflammation or irritation of the spinal cord or spinal nerves. The LAURIE is for the treatment of neck and arm pain, numbness, and weakness. Why have the procedure performed? The epidural space surrounds the spinal cord and spinal nerves, and insulates them from the spine, bones, and disks. Many things can irritate the spinal cord/nerves and cause pain, numbness, and weakness. Examples include: herniated or bulging disks, bone spurs, spinal stenosis, arthritis changes, or scar tissue from previous spine surgeries. This pain, referred to as radicular pain or pinched nerve, is felt in the area of the body that the irritated nerve or nerves travel to. If this irritation or inflammation is relieved, then possibly all of the pain, numbness, or weakness will resolve, thus eliminating the need for surgery. How often can the procedure be performed? After a single injection, if the relief is partial, the injection can be repeated to try to achievecomplete relief. At the physician's discretion the injections may be repeated up to 3 times per year to sustain pain relief. What are the risks of the procedure? As with any medication or medical intervention, there are risks associated with an interventional procedure. Risks are present regardless of the skill, care, and experience of the physician performing the procedure. In most cases, these risks and hazards are minimal and serious complications are rare. Potential risks may include, but are not limited to: vasovagal response (passing out), new or increase of pain, infection, bleeding, permanent skin changes, allergic or unexpected drug reaction with minor or major consequences, dural puncture, and headache. Procedures in the neck have the added risks of seizure, stroke, and . There is also a risk that the procedure fails to provide the expected/desired pain relief. There are serious potential risks to an unborn fetus from any imaging study, including x-ray and fluoroscopy. If there is any chance you may be , please postpone this procedure until it can be confirmed that you are not . Will I be asleep for this procedure? No. This procedure is done under local anesthesia. How long do the effects of the medication last? You may have an immediate relief of your pain from the local medication used. This will wear off tay few hours and your pain may come back. The steroid will then start to take effect in 3-5 days with full potential at about 2-3 weeks. Pre-Procedure Injection Instructions: For your safety and benefit, you will need a responsible adult with you after the procedure. You are not allowed to drive following the procedure, as the local medication can cause numbness or weakness, which would affect your ability to safely operate a vehicle. If you do not have a trailer truck driver, your procedure may be rescheduled. If you are allergic to contrast dye (Isovue) and this has not been discussed with you, please call the staff at [facility] at [phone] before you come to your procedure appointment. You may eat and drink as normal unless there have been specific instructions given to you to fast. Wear comfortable, loose fitting clothing to your procedure. Medications BEFORE the procedure: If you take blood thinners, please speak with the nurse regarding the need to hold this medication.If you need to hold the medication, you will be given specific instructions on when to hold it. It is important that you do not stop the medication on your own, without discussing it with us first. If you are on a blood thinner such as warfarin/coumadin, plavix, xarelto, eliquis, etc. this may increase your risk of bleeding and post-procedure complications. The decision to hold your blood thinner will be discussed with you and your care team. You may take your other prescribed medications (blood pressure, insulin, water pills, depression/anxiety pill etc.) as scheduled, unless otherwise directed by your pain physician. What to Expect During the Procedure: During the procedure, positioning is important to make the injection proceed smoothly and with the least amount of discomfort for you. Some locations may ask that you change out of your clothing and put on a hospital gown. Some locations will allow you to stay in your clothing. Upon entering the room, you will be asked to unbutton and unzip your pants if you are still wearing your regular clothing, having the zipper out of the wayduring fluoroscopy (X-ray) is important. You will then be asked to lay on your stomach, positioned appropriately for the procedure, to include having your buttock partially exposed; we will be as modest as possible. The skin is cleansed with an antiseptic solution and a sterile drape is placed over the area. The pain physician may inject some local anesthetic medication (Lidocaine) to numb the skin near the injection site. (This typically feels like a pinch followed by brief burning, most would describe it as a bee/wasp sting). Fluoroscopy (x-ray) is used throughout the procedure to ensure exact placement of the needle for injection. Once the needle is positioned, a small amount of 'Contrast dye' is used to confirm placement. Once correct placement is confirmed, the steroid solution will be injected. The injection will contain steroids, for reducing inflammation and in some cases may include local anesthetic for numbing. It is not unusual for you to feel pressure or discomfort during the injection of the medication. Sometimes, the steroid and can cause brief feelings of tingling, warmth, and pressure in your arms. Occasionally, your arms can have a sensation of numbness and be a bit weak, this resolves quickly. The procedure takes approximately 5-10 minutes. You may have an immediate relief of your pain from thelocal medication used. The local anesthetic will wear off in a few hours and your pain may come back. The steroid will then start to take effect in 3-5 days with full potential at about 2-3 weeks. After the injection is performed a small bandage will be placed on your skin. You will then be asked to slowly sit up and take a few moments to get your bearings. You will then be accompanied to the post-procedure area. What to Expect After the Procedure? After the procedure, a staff member will accompany you to the post-procedure area. Another set of vital signs will be obtained and your discharge instructions reviewed with you. You will be given an opportunity to ask any questions you may have. You will then be able to get changed and be discharged. Please take it easy for the remainder of the day. Activity No driving for 12 hours after your procedure. You may have numbness/tingling/weakness/heaviness in your extremities. If you receive any oral or IV medication prior to your procedure, you may not drive, operate machinery, make important decisions, or place yourself in potentially unsafe situations for the next 12 hours. With this medication you may have temporary memory loss, and you may feel sleepy and should rest until you are more awake, then gradually resume normal activity. Avoid vigorous physical activity for 24 hours after your injection. You may perform moderate exercise as tolerated, avoid excessive bending or twisting. The day following the procedure: If you are on Blood Thinners and you held them, you may start these again on the day following the procedure. You can resume your normal activities, just keep in mind, if you do something and it starts to hurt, stop doing that activity. The bandage may come off For the next 48 hours You are asked to refrain from soaking in any water, such as: swimming, whirlpools, hot tubs, and baths; SHOWERING IS FINE Physical Therapy may be resumed 48 hours after the injection. Please ask about any specific physical therapy questions. Please remember the steroids will start to take effect in 3-5 days with full potential at about 2-3weeks. If you routinely need antibiotic prophylaxis please consult your primary care physician prior to the procedure for this prescription. What to do if you have questions: Please send a MyMerSellanApp message to your Pain Management provider or contact our office Dept: [phone] documented in this encounter Plan of Treatment Upcoming Encounters Date Type Department Care Team (Late st Contact Info) Description 04/13/2025 12:00 PM CDT Appointment [facility] [address] [place] [address] Sandeep Randolph MD [address] [place] [address] 08/19/2025 10:20 AM CDT Office [facility] [address] [place] [address] Wilfrid Montoya, [facility] [address] [place] [address] 08/24/2025 9:00 AM CDT Office Visit [facility] Family Medicine [facility] [address] [address] [address] [place] [address] Renetta Still NP [address] [address] [address] [place] [address] Scheduled Orders Name Type Priority Associated Diagnoses Orde r Schedule EPIDURAL STEROID INJECTION, CERVICAL/THORACIC Neurology Routine Cervical stenosis of spinal canal Cervical radiculitis Neuroforaminal stenosis of cervical spine 1 Occurrences starting 04/02/2025 until 04/02/2026 documented as of this encounter Visit Diagnoses Diagnosis Cervical stenosis of spinal canal- Primary Spinal stenosis in cervical region Cervical radiculitis Brachial neuritis or radiculitis nos Neuroforaminal stenosis of cervical spine Cervical spondylosis without myelopathy Pain of cervical facet joint Cervicalgia Lumbosacral spondylosis without myelopathy Lumbar facet joint pain Other symptoms referable to back Discogenic low back pain Lumbago Degeneration of intervertebral disc of lumbosacral region with discogenic back pain Degeneration of intervertebral disc of lumbar region with discogenic back pain documented in this encounter Care Teams Chauffeur Motorbus Relationship Specialty Start Date End Date Zachary Arroyo MD [address] [address] [address] [place] [address] PCP - General Family Practice 07/29/23 documented as of this encounter
[2025-04-09 05:10] VITALS: PULSE 80; RESP 18; TEMP 36.6; O2SAT 95; BMI 31.3
--- NOTE | 2025-04-09 05:32 | ECG_ITS ---
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 Measurements Intervals [place] Rate: 111 P: 64 IL: 153 QRS: 68 QRSD: 89 T: 67 QT: 353 QTc: 480 Interpretive Statements SINUS TACHYCARDIA Compared to ECG 04/08/2025 08:03:28 No significant changes Electronically Signed On 04-09-2025 14:50:08 CDT by Negrito Proctor M.D. [id number]
[2025-04-09 05:50] LABS: Basophils % 0.4 %; Eosinophils # 0.2 10^3/uL (0.0-0.8); Eosinophils % 1.9 %; Hematocrit 35.4 % (37-53); Lymphocytes # 1.4 10^3/uL (0.8-4.8); Lymphocytes % 17.8 %; Mean Corpuscular HGB Conc 33.1 g/dL (30-55); Mean Corpuscular Hemoglobin 31.9 pg (27-33); Mean Corpuscular Volume 96.5 fl (82-101); Mean Platelet Volume 8.7 fL (7.4-10.4); Monocytes # 0.6 10^3/uL (0.2-0.9); Monocytes % 7.9 %; Neutrophils # 5.57 10^3/uL (1.8-7.7); Neutrophils % 71.9 %; Nucleated Red Blood Cells % 0 %; Platelet Count 240 10^3/cmm (157-399); Red Blood Count 3.67 10^6/uL (3.85-5.65); Red Cell Distribution Width 14.4 % (12.1-15.1); White Blood Count 7.75 10^3/uL (3.29-11.43)
[2025-04-09 05:51] LABS: Amphetamines Screen Urine Positive (Negative); Barbiturates Screen Urine Negative (Negative); Benzodiazepines Screen Urine Positive (Negative); Cocaine Screen Urine Negative (Negative); Opiate Screen Urine Negative (Negative); PCP Screen Urine Negative (Negative); THC Screen Urine Positive (Negative)
[2025-04-09 05:54] LABS: Add Urine Culture? No
[2025-04-09 06:12] LABS: Alanine Aminotransferase 17 U/L (0-41); Albumin Level 4.3 g/dL (3.5-5.2); Alcohol Level 39 mg/dL (0-10); Alkaline Phosphatase 90 U/L (40-130); Anion Gap 19.2 (5-19); Aspartate Amino Transferase 45 U/L (0-40); Blood Urea Nitrogen 13 mg/dL (6-20); Calcium 8.8 mg/dL (8.5-10.5); Carbon Dioxide 22 mmol/L (22-29); Chloride 100 mmol/L (98-107); Globulin 2.9 g/dL (1.3-4.6); Glomerular Filtration Rate 86.4 mL/min (90-130); Glucose 89 mg/dL (65-115); Osmolality Calculated 286 mOsm/kg (285-295); Potassium 3.2 mmol/L (3.5-5.1); Sodium 138 mmol/L (136-145); Total Bilirubin 0.6 mg/dL (0.15-1.2); Total Protein 7.2 g/dL (6.6-8.7)
[2025-04-09 06:13] LABS: Acetaminophen < 5.0 ug/mL (10-30); Salicylate < 0.3 mg/dL (3-10)
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
[2025-04-09] MEDS: LORazepam 1 MG/0.5 ML injection 2 MG IM (06:38)
[2025-04-09] MEDS: ziprasidone 20 mg/mL SDV IM (06:38)
[2025-04-09 06:47] LABS: Blood Urine 1+ (Negative); Glucose Urine UA Norm (Normal); Ketones Urine Trace (Negative); Protein Urine 1+ (Negative); Specific Gravity, Urine 1.019 (1.005-1.030); Urine Appearance Clear (CLEAR); Urine Color Yellow (Yellow); pH Urine 5 (5-7)
[2025-04-09 06:48] LABS: Add Urine Microscopic? YES; Bilirubin Urine Neg (Negative); Hyaline Casts Urine 3.3 /lpf; Leukocyte Esterase Urine Negative (Negative); Nitrate Urine Negative (Negative); RBC Urine 0-4 /hpf (0-2); Squamous Epithelial Cell Urine 0-4 /hpf (0-5); Urobilinogen Urine 1 mg/dL (Negative); WBC Urine 0-4 /hpf (0-5)
--- NOTE | 2025-04-09 06:49 | PC.NURSE ---
This nurse read the pt his 96 hour hold rights with security present. PT denies the need for anything at this time
--- NOTE | 2025-04-09 06:51 | PC.PHAR ---
Med Rec completed 04/08/25 after noon. Pt did return with no changes to medications since yesterday.
[2025-04-09 07:08] VITALS: BP 157/93; PULSE 113; RESP 18; TEMP 37.1; O2SAT 97
[2025-04-09 09:40] VITALS: BP 157/93
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
[2025-04-09 14:00] VITALS: BP 115/80; PULSE 80; RESP 18; TEMP 36.5; O2SAT 95
--- OUTSIDE RECORDS SUMMARY | 2025-04-09 14:44 | XMS_ITS | Encounter Summary ---
Author Organization [facility] Address [address] [place] [address] Care Team Providers Care Um Rn Name Role Phone Zachary Arroyo MD Primary Care Provider [phone] Reason for Visit * Reason Onset Date Comments reschedule echo 03/26/2024 Encounter Details Date Type Department Care Team (Late Contact Info) Description 03/26/2024 Telephone [facility] [address] [place] [address] Sandeep Randolph MD [address] [place] [address] reschedule echo Social History Tobacco Use Types Packs/Day Years Used Date Smoking Tobacco: Every Day Cigarettes Smokeless Tobacco: Never Alcohol Use Standard Drinks/Week Comments Yes 4 (1 standard drink = 0.6 oz pur e alcohol) Feeling Safe Answer Date Recorded Are you in a relationship wi th someone who hurts you emotionally and/or physically? 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 Updated apt # for address documented in this encounter Plan of Treatment Upcoming Encounters Date Type Department Care Team (Late st Contact Info) Description 04/13/2025 12:00 PM CDT Appointment [facility] Echo [address] [place] [address] Sandeep Randolph MD [address] [place] [address] 08/19/2025 10:20 AM CDT Office Visit [facility] [address] [place] [address] Wilfrid Montoya ARNP [address] [place] [address] 08/24/2025 9:00 AM CDT Office Visit [facility] [address] [address] [address] [place] [address] Renetta Still NP [address] [facility] [address] [place] [address] documented as of this encounter Visit Diagnoses Not on filedocumented in this encounter Care Teams Um Rn Relationship Specialty Start Date End Date Zachary Arroyo MD [address] [facility] [address] [place] [address] PCP - General Family Practice 07/29/23 documented as of this encounter
--- OUTSIDE RECORDS SUMMARY | 2025-04-09 14:44 | XMS_ITS | Clinical Summary ---
Author Organization [facility] Address [address] [place] [address] Phone Care Team Providers Care Sausage Maker Name Role Phone Jamison Brunner MD Primary Care Provider [phone] Allergies No known active allergies Medications lisinopril (PRINIVIL) 10 mg Oral tablet Take 10 mg by mouth daily. Active atenolol (TENORMIN) 50 mg Oral tablet Take 50 mg by mouth daily. Active ibuprofen (MOTRIN) 800 mg Oral tablet Take 800 mg by mouth every 8 hours as needed. 08/20/2010 Active traMADol (ULTRAM) 50 mg Oral tablet Take 100 mg by mouth every 6 hours as needed. Active gabapentin (NEURONTIN) 300 mg Oral capsule Take 300 mg by mouth 2 times daily. 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 Gender Identity Not on file Sexual Orientation Not on file Last Filed Vital Signs Vital Sign Reading Time Taken Comments Blood Pressure 100/68 08/20/2010 3:36 PM CDT Pulse 70 08/20/2010 3:36 PM CDT Temperature 36.9 C (98.5 F) 08/20/2010 2:18 PM CDT Respiratory Rate 20 08/20/2010 2:18 PM CDT Oxygen Saturation 95% 08/20/2010 3:36 PM CDT Inhaled Oxygen Concentration - - Weight 95.3 kg (210 lb) 08/20/2010 2:18 PM CDT Height 175.3 cm (5' 9 ) 08/20/2010 2:18 PM CDT Body Mass Index 31.01 08/20/2010 2:18 PM CDT Plan of Treatment Health Maintenance Due Date Last Done Comments DTAP/TDAP/TD VACCINES (1 - Tdap) 1984 HEPATITIS B VACCINES (1 of 3 - 19+ 3-dose series) 01/1984 COLORECTAL SCREENING 2010 Colorectal Cancer Screening 2010 FIT-DNA Q 3 years 2010 FIT/FOBT Q 1 year 2010 Flex Sig/CT Colonography Q 5 years 2010 ZOSTER VACCINE (1 of 2) 2015 INFLUENZA VACCINE (#1) 2024 Insurance MEDICARE PART A AND B Care Teams Sausage Maker Relationship Specialty Start Date End Date Jamison Brunner MD PCP - General Internal Medicine 08/20/10
--- OUTSIDE RECORDS SUMMARY | 2025-04-09 14:44 | XMS_ITS | Clinical Summary ---
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 Dyslipidemia E78.5 ASHD (arteriosclerotic heart disease) I25.10 Claudication, intermittent I73.9 Accelerating angina (CMS/HCC) I20.0 Claudication in peripheral vascular disease I73.9 PVD (peripheral vascular disease) I73.9 Foraminal stenosis of cervical region M48.02 Acute cervical radiculopathy M54.12 Tobacco use Z72.0 59-year-old male with past medical history of hypertension,hyperlipidemia, CAD s/p 5 stents, PCI circumflex 12/30/2023 is here tofollow-up with cardiology. We had requested echocardiogram to rule out valvular abnormalities howeverpatient never got it done and is still pending. Today, patient denies any chest pain, shortness of breath, altered mentalstatus, presyncopal or syncopal episodes or any other acute issues.Patient has been taking medications as prescribed and does not report anyside effects. Patient also complains of lower extremity claudication symptoms such thathe has to stop at minimal activity levels due to excessive tightness inbilateral calfs. Again based on extensive risk-benefit discussion patienthas opted to move forward with invasive workup with peripheral angiographyplus minus intervention . I had an extensive discussion with the patient regarding further course ofaction, necessary testing, emergency precautions and patient is agreeablewith the same. Anti-Lipid therapies: Continue statins In addition we will continue with, Aggressive risk factor modification and lifestyle changes. Continue with current guideline directed maximally tolerated aggressivemedical therapy. Current Outpatient Medications Medication metoprolol succinate (TOPROL XL) 25 mg Extended Release 24 hour tablet gabapentin (NEURONTIN) 100 mg capsule baclofen (LIORESAL) 10 mg tablet nitroglycerin (NITROSTAT) 0.4 mg Tablet, Sublingual amLODIPine-valsartan (EXFORGE) 10-160 mg Tablet atorvastatin (LIPITOR) 40 mg tablet Brilinta 90 mg Tablet aspirin (ECOTRIN EC) 81 mg Tablet, Delayed Release (E.C.) No current facility-administered medications for this visit. Additionally, Keep a blood pressure log and bring it to the next PCP appointment wherefurther titration of blood pressure medications will be performed. Continue to follow with PCP/ other specialists for appropriate managementand treatment of chronic issues. Will request the staff/RN to refill all current cardiovascular medicationsand help placing & reviewing orders as discussed above in the plan. Willalso request the assisting staff/RN to go over the plan and education withpatient again. I performed a history and physical examination of the patient. I had anextensive discussion with patient (and/or family member and/orsurrogate/POA) about the options of medications, invasive and noninvasiveprocedures as recommended by current guidelines. Patient (and/or familymember and/or surrogate/POA) verbalized understanding of assessment andwillingness to implement the plan as described after understanding therisks and benefits of each. I had extensive discussion with the patientregarding emergency precautions and explained that patient should call 911or go to the nearest ER if any of the symptoms were torecur/progress/worsen including chest pain, shortness of breath alteredmental status, presyncopal or syncopal episodes, palpitations or any otheracute issues patient is agreeable with the same. Portions of this document were created through the use of [employer]ist[employer] Medicaltranscription software. Effort has been made to ensure accuracy of thetranscription. Any obvious errors or omissions should be clarified withthe author of the document. Sandeep Randolph MD Sandeep Randolph MD ECG ORDERABLES Final Result [facility] [id number] [address] [facility] [address] [place] [address], [place] [phone] * (ABNORMAL) POC URINALYSIS DIPSTICK AUTOMATED (02/02/2025 3:33 PM CDT) COLOR UA POC Yellow Pale to Dark Yellow [facility] 248 CLARITY UA POC Slightly Cloudy(A) Clear, Other [facility] 248 GLUCOSE UA POC Negative Negative, Normal [facility] 248 BILIRUBIN UA POC Negative Negative [facility] 248 KETONES UA POC 2+(A) Negative [facility] 248 SPECIFIC GRAVITY UA POC 1.015 1.000 - 1.030 [facility] 248 BLOOD UA POC Trace(A) Negative [facility] 248 PH UA POC 6.0 5.0 - 8.0 [facility] IC [facility] 248 PROTEIN UA POC Trace(A) Negative [facility] 248 UROBILINOGEN UA POC 0.2 <2.0 mg/dL [facility] 248 NITRITE UA POC Positive(A) Negative [facility] 248 LEUKOCYTE ESTERASE UA POC Trace(A) Negative [facility] [address] NUM[address] POC 310,072 [facility] 248 KIT EXP DATE POC 02/24/2025 [facility] 248 Urine 02/02/2025 3:33 PM CDT us Renetta Stocks DJANGO DEVELOPER POINT OF CARE TESTING Final Re sult [facility] Koch [facility]# [id number] [address] [place] [address] 248 [facility] [address] [address] * CT CERVICAL SPINE WO CONTRAST (01/28/2025 9:17 AM CDT) Anatomical Region Laterality Modality Spine Computed Tomogra phy 01/28/2025 9:24 AM CDT Impressions 01/28/2025 1:44 PM CDT IMPRESSION: Please see below. Noncontrast axial images were obtained through the cervical spine. Sagittal reformations were also performed. Reason For Exam: Cervical radiculopathy, known malignancy. Diagnosis: Acute cervical radiculopathy. Comparison: None Findings: Multilevel cervical spine degenerative changes and a mild dextroscoliosis. No acute fracture or subluxation. C1-2: Mild atlantoaxial degenerative changes. C2-3: Bilateral facet degenerative changes, greater on the left. No significant central canal stenosis. Mild right foraminal narrowing. C3-4: Moderate to severe disc space height loss and mild endplate sclerosis. Severe left facet hypertrophic bony changes and severe left and moderate right foraminal narrowing. C4-5: Left greater the right facet degenerative changes and mild to moderate bilateral foraminal narrowing. C5-6: Disc space height loss with endplate sclerosis and anterior endplate hypertrophic spurs. Moderate to severe bony encroachment on the bilateral foramina. C6-7: Significant disc space height loss with mild endplate sclerosis and marginal osteophytes. Mild disc osteophyte complex. Severe bilateral bony encroachment on the neural foramina. C7-T1: Very slight annular bulge. Facet degenerative changes without significant central canal or foraminal narrowing. The visualized upper lungs are clear. Ethmoid, sphenoid and left axilla sinus mucosal thickening. Right inferior maxillary and right lateral sphenoid sinus mucus retention cysts. IMPRESSION: 1. Significant multilevel degenerative changes and varying degrees of foraminal narrowing, most notable at the bilateral C3-4, C5-6 and C6-7 levels. Narrative Procedure Note Rell Lobo MD - 01/28/2025 IMPRESSION: Please see below. Noncontrast axial images were obtained through the cervical spine. Sagittal reformations were also performed. Reason For Exam: Cervical radiculopathy, known malignancy. Diagnosis: Acute cervical radiculopathy. Comparison: None Findings: Multilevel cervical spine degenerative changes and a mild dextroscoliosis. No acute fracture or subluxation. C1-2: Mild atlantoaxial degenerative changes. C2-3: Bilateral facet degenerative changes, greater on the left. No significant central canal stenosis. Mild right foraminal narrowing. C3-4: Moderate to severe disc space height loss and mild endplate sclerosis. Severe left facet hypertrophic bony changes and severe left and moderate right foraminal narrowing. C4-5: Left greater the right facet degenerative changes and mild to moderate bilateral foraminal narrowing. C5-6: Disc space height loss with endplate sclerosis and anterior endplate hypertrophic spurs. Moderate to severe bony encroachment on the bilateral foramina. C6-7: Significant disc space height loss with mild endplate sclerosis and marginal osteophytes. Mild disc osteophyte complex. Severe bilateral bony encroachment on the neural foramina. C7-T1: Very slight annular bulge. Facet degenerative changes without significant central canal or foraminal narrowing. The visualized upper lungs are clear. Ethmoid, sphenoid and left axilla sinus mucosal thickening. Right inferior maxillary and right lateral sphenoid sinus mucus retention cysts. IMPRESSION: 1. Significant multilevel degenerative changes and varying degrees of foraminal narrowing, most notable at the bilateral C3-4, C5-6 and C6-7 levels. us Renetta Stocks DJANGO DEVELOPER CT ORDERABLES Final Result * XR CERVICAL SPINE 2 OR 3 VIEWS (01/19/2025 10:11 AM CDT) Anatomical Region Laterality Modality Spine Computed Radiogr aphy 01/19/2025 10:1 1 AM CDT Impressions 01/19/2025 1:32 PM CDT IMPRESSION: Please see below. Exam: XR CERVICAL SPINE 2 OR 3 [...] arthropathy. Prevertebral soft tissues are within normal limits. Narrative Procedure Note Rian Schmitt, DO - 01/19/2025 IMPRESSION: Please see below. Exam: XR CERVICAL SPINE 2 OR 3 [...] arthropathy. Prevertebral soft tissues are within normal limits. us Renetta Cheko DJANGO DEVELOPER DIAGNOSTIC IMAGING ORDERABLES Final Result * XR LUMBAR SPINE 2 OR 3 VW (01/19/2025 10:11 AM CDT) Anatomical Region Laterality Modality Spine Computed Radiogr aphy 01/19/2025 10:1 1 AM CDT Impressions 01/19/2025 10:29 AM CDT IMPRESSION: Please see below. Exam: XR LUMBAR SPINE 2 OR 3 VW Date/Time of Exam: 01/19/2025 10:11 AM Reason For Exam: See Diagnosis. Diagnosis: Chronic left-sided low back pain without sciatica; Chronic left-sided low back pain without sciatica. Comparison: None FINDINGS: Frontal lateral and lumbosacral projections show grossly normal alignment. Mild to moderate disc degeneration with bulky spondylosis and supraspinous enthesopathy. Facet and interspinous arthropathy. No compression fracture, spondylolysis or listhesis. Narrative Procedure Note Rian Schmitt, DO - 01/19/2025 IMPRESSION: Please see below. Exam: XR LUMBAR SPINE 2 OR 3 VW Date/Time of Exam: 01/19/2025 10:11 AM Reason For Exam: See Diagnosis. Diagnosis: Chronic left-sided low back pain without sciatica; Chronic left-sided low back pain without sciatica. Comparison: None FINDINGS: Frontal lateral and lumbosacral projections show grossly normal alignment. Mild to moderate disc degeneration with bulky spondylosis and supraspinous enthesopathy. Facet and interspinous arthropathy. No compression fracture, spondylolysis or listhesis. RenettaSimplyInsured DJANGO DEVELOPER DIAGNOSTIC IMAGING ORDERABLES Final Result * TSH REFLEXIVE (01/19/2025 10:11 AM CDT) TSH 1.68 0.40 - 4.50 mIU/L [facility] Comment: FASTING:NO FASTING: NO Test Performed at: [facility] [address] [place] [phone] Erika Reid MD Blood 01/19/2025 10:1 1 AM CDT 01/19/2025 10:13 AM CDT Renetta everyArt DJANGO DEVELOPER CHEMISTRY ORDERABLES Final Res ult [facility] [phone] [facility] [address] * MICROALBUMIN/CREATININE RATIO, RANDOM UR (01/19/2025 10:11 AM CDT) Creatinine, Urine 61 20 - 320 mg/dL [facility] MICROALBUMIN, URINE 0.9 See Note: mg/dL [facility] Comment: Reference Range: Reference Range Not established MICROALBUMIN/CREAT RATIO, UR 15 <30 mg/g creat [facility] Comment: The ADA defines abnormalities in albumin excretion as follows: Albuminuria Category Result (mg/g creatinine) Normal to Mildly increased <30 Moderately increased 30-299 Severely increased > OR = 300 The ADA recommends that at least two of three specimens collected within a 3-6 month period be abnormal before considering a patient to be within a diagnostic category. FASTING:NO FASTING: NO Test Performed at: [facility] [address] [place] [phone] Erika Reid MD 01/19/2025 10:1 1 AM CDT 01/19/2025 10:13 AM CDT us Renetta Stocks DJANGO DEVELOPER URINE ORDERABLES Final Result [facility] [phone] [facility] [address] [place] [address] * (ABNORMAL) CBC WITH DIFFERENTIAL (01/19/2025 10:11 AM CDT) WBC 7.7 3.8 - 10.8 Thousand/u L [facility] RBC 4.11(L) 4.20 - 5.80 Million/uL [facility] HEMOGLOBIN 13.4 13.2 - 17.1 g/dL [facility] HEMATOCRIT 41.3 38.5 - 50.0 % [facility] MCV 100.5(H) 80.0 - 100.0 fL [facility] MCH 32.6 27.0 - 33.0 pg [facility] MCHC 32.4 32.0 - 36.0 g/dL [facility] Comment: For adults, a slight decrease in the calculated MCHC value (in the range of 30 to 32 g/dL) is most likely not clinically significant; however, it should be interpreted with caution in correlation with other red cell parameters and the patient's clinical condition. RDW 12.1 11.0 - 15.0 % [facility] PLATELETS 303 140 - 400 Thousand/u L [facility] MPV 9.2 7.5 - 12.5 fL [facility] NEUTROPHIL ABSOLUTE 5,190 1,500 - 7,800 cells/uL [facility] LYMPHOCYTE ABSOLUTE 1,794 850 - 3,900 cells/uL [facility] MONOCYTE ABSOLUTE 524 200 - 950 cells/uL [facility] EOSINOPHIL ABSOLUTE 162 15 - 500 cells/uL [facility] BASOPHILS ABSOLUTE 31 0 - 200 cells/uL [facility] NEUTROPHIL 67.4 % [facility] LYMPHOCYTES 23.3 % [facility] MONOCYTE 6.8 % [facility] EOSINOPHILS 2.1 % [facility] BASOPHILS 0.4 % [facility] Comment: FASTING:NO FASTING: NO Test Performed at: [facility] [address] [facility] [place] [address] Erika Reid MD Blood 01/19/2025 10:1 1 AM CDT 01/19/2025 10:13 AM CDT us Renetta Stocks DJANGO DEVELOPER HEMATOLOGY ORDERABLES Final Re sult Performing Organization Address City/[facility]/ZIP Co de Phone Number [facility] [phone] [facility] [address] [facility] [address] * PSA (01/19/2025 10:11 AM CDT) PSA 1.62 < OR = 4.00 ng/mL [facility] Comment: The total PSA value from this assay system is standardized against the WHO standard. The test result will be approximately 20% lower when compared to the equimolar-standardized total PSA (Nikolay Eugene). Comparison of serial PSA results should be interpreted with this fact in mind. This test was performed using the Siemens chemiluminescent method. Values obtained from different assay methods cannot be used interchangeably. PSA levels, regardless of value, should not be interpreted as absolute evidence of the presence or absence of disease. Test Performed at: [facility] [address] [place] [address] [place] [address] JacquelineAnne Reid MD Blood 01/19/2025 10:1 1 AM CDT 01/19/2025 10:13 AM CDT us Renetta Stocks DJANGO DEVELOPER CHEMISTRY ORDERABLES Final Res ult [facility] [phone] [facility] [address] [place] [address] * HEMOGLOBIN A1C (01/19/2025 10:11 AM CDT) HEMOGLOBIN A1C 5.5 <5.7 % of total Hgb [facility] Comment: For the purpose of screening for the presence of diabetes: <5.7% Consistent with the absence of diabetes 5.7-6.4% Consistent with increased risk for diabetes (prediabetes) > or =6.5% Consistent with diabetes This assay result is consistent with a decreased risk of diabetes. Currently, no consensus exists regarding use of hemoglobin A1c for diagnosis of diabetes in children. According to [place] Diabetes Association (ADA) guidelines, hemoglobin A1c <7.0% represents optimal control in non- diabetic patients. Different metrics may apply to specific patient populations. Standards of Medical Care in Diabetes(ADA). ESTIMATED AVERAGE GLUCOSE (MG/DL) 111 mg/dL [facility] ESTIMATED AVERAGE GLUCOSE (MMOL/L) 6.2 mmol/L [facility] Comment: FASTING:NO FASTING: NO Test Performed at: [facility] [address] [place] [phone] Erika Reid MD Blood 01/19/2025 10:1 1 AM CDT 01/19/2025 10:13 AM CDT us Renetta Stocks DJANGO DEVELOPER CHEMISTRY ORDERABLES Final Res ult [facility] [phone] [facility] [address] * LIPID PANEL (01/19/2025 10:11 AM CDT) CHOLESTEROL 112 <200 mg/dL [facility] HDL 42 > OR = 40 mg/dL [facility] TRIGLYCERIDE 70 <150 mg/dL [facility] LDL CALCULATED 55 mg/dL (calc) [facility] Comment: Reference range: <100 Desirable range <100 mg/dL for primary prevention; <70 mg/dL for patients with CHD or diabetic patients with > or = 2 CHD risk factors. LDL-C is now calculated using the Marco calculation, which is a validated novel method providing better accuracy than the Friedewald equation in the estimation of LDL-C. Lucian KEEN et al. VIDYA. 2013;310(19): 2180-7334 (http://education.Anedot/faq/HIQ876) CHOL/HDL RATIO 2.7 <5.0 (calc) [facility] NON-HDL CHOLESTEROL 70 <130 mg/dL (calc) [facility] Comment: For patients with diabetes plus 1 major ASCVD risk factor, treating to a non-HDL-C goal of <100 mg/dL (LDL-C of <70 mg/dL) is considered a therapeutic option. Test Performed at: [facility] [place] [address] Erika Reid MD Blood 01/19/2025 10:1 1 AM CDT 01/19/2025 10:13 AM CDT us Renetta Stocks DJANGO DEVELOPER CHEMISTRY ORDERABLES Final Res ult [facility] [phone] [facility] [address] * COMPREHENSIVE METABOLIC PANEL (01/19/2025 10:11 AM CDT) GLUCOSE 93 65 - 139 mg/dL [facility] Comment: Non-fasting reference interval BUN 13 7 - 25 mg/dL [facility] CREATININE 1.04 0.70 - 1.30 mg/dL [facility] GFR 83 > OR = 60 mL/min/1. 73m2 [facility] BUN/CREAT RATIO SEE NOTE: 6 - 22 (calc) [facility] Comment: Not Reported: BUN and Creatinine are within reference range. SODIUM 140 135 - 146 mmol/L [facility] POTASSIUM 4.3 3.5 - 5.3 mmol/L [facility] CHLORIDE 105 98 - 110 mmol/L [facility] CO2 26 20 - 32 mmol/L [facility] CALCIUM 9.6 8.6 - 10.3 mg/dL [facility] TOTAL PROTEIN 7.5 6.1 - 8.1 g/dL [facility] ALBUMIN 4.9 3.6 - 5.1 g/dL [facility] GLOBULIN 2.6 1.9 - 3.7 g/dL (calc) [facility] ALBUMIN/GLOBULIN RATIO 1.9 1.0 - 2.5 (calc) [facility] BILIRUBIN TOTAL 0.5 0.2 - 1.2 mg/dL [facility] ALKALINE PHOSPHATASE 77 35 - 144 U/L [facility] AST 10 10 - 35 U/L [facility] ALT 9 9 - 46 U/L [facility] Comment: FASTING:NO FASTING: NO Test Performed at: [facility] [address] [place] [address] Erika Reid MD Blood 01/19/2025 10:1 1 AM CDT 01/19/2025 10:13 AM CDT us Renetta Stocks DJANGO DEVELOPER CHEMISTRY ORDERABLES Final Res ult [facility] [phone] [facility] [address] [place] [address] from Last 3 Months Insurance [place] O DSNP Advance Directives For more information, please contact: [phone] * Full Code (Latest Code Status on File) Date Activated Date Inactivated Comments 12/30/2023 11:53 AM 12/30/2023 8:02 PM * Full Code Date Activated Date Inactivated Comments 12/30/2023 7:33 AM 12/30/2023 11:53 AM Care Teams Art Psychotherapist Relationship Specialty Start Date End Date Zachary Arroyo MD [address] [place] [address] 248 [facility] [address] [address] PCP - General Family Practice 07/29/23
--- OUTSIDE RECORDS SUMMARY | 2025-04-09 14:44 | XMS_ITS | Patient Health Record ---
Author Organization [facility] Address [address] [place], [place] [id number] Care Team Providers Care Legal Contracts Specialist Name Role Phone Lucian Gee DO Primary Care Provider Jhonathan Orozco MD Unavailable Unavailable Allergies Allergen (clinical drug ingredient) Drug/Non Drug Allergy documented on EMR Reaction Allergy Type Onset Date Status None or not verifiab le (as is Current Medications) (uncoded) Unknown Allergy Active Reason For Referral No Information Medications Medication SIG (Take, Route, Frequency, Duration) Notes Start Date End Date Status Soma 350 mg 1 tab po orally TID prn spasm Active atenolol 50 mg 1 tab orally once a day for 30 day(s) Active Acetaminophen-Oxycodone Hydrochloride 325 mg-10 mg 1-2 tabs po orally Q4-6H prn pain (max 9/day) Active CeleBREX 200 mg 1 cap po orally Q24H with food Active lisinopril 10 mg 1 tab orally once a day for 30 day(s) Active Problems Problem Type SNOMED Code ICD Code Onset Dates Problem Status W/U Status Risk Notes Problem Solitary sacroiliitis (907856644) Sacroiliitis (720.2) Active confirmed Problem Lumbosacral spondylosis without myelopathy (77172252) Lumbosacral spondylosis without myelopathy (721.3) Active confirmed Problem Displacement of lumbar intervertebral disc without myelopathy (22453694) Lumbar (w/out myelopathy) intervertebral disc disorder (722.10) Active confirmed Problem Spasm (43432632) Muscle spasm (728.85) Active confirmed Problem Low back pain (588073146) Low back pain (724.2) Active confirmed Problem Lumbar post-laminectomy syndrome (708660264) Postlaminectomy syndrome of lumbar region (722.83) Active confirmed Plan Of Treatment No Information Insurance Providers Payer Name Payer Address Payer Phone Subscriber Number Group Number Insured Name Patient Relationship to Insured Coverage Start Date Coverage End Date [employer] Medicare Part B Claims Department [address] [address] [place] [address] [id number] Remy Araya Self - patient is the insured Medical (General) History Medical History History ICD Code See prior documentation Surgical History Surgery Date(Month/Year) Right L2-L3 lateral discectomy with deco mpression 03/04/09 Appendectomy Right rotator cuff 11/17/08 Left leg Hospitalization History Reason Date(Month/Year) Surgeries
--- OUTSIDE RECORDS SUMMARY | 2025-04-09 14:44 | XMS_ITS | Encounter Summary ---
Author Organization [facility] Address [address] [place] [address] Care Team Providers Care Mold Cleaning And Storage Supervisor Name Role Phone Zachary Arroyo MD Primary Care Provider Reason for Visit * Reason Comments Clinical Consult Before Scheduling Encounter Details Date Type Department Care Team ([facility] st Contact Info) Description 11/12/2024 Telephone [facility] Medicine [facility] [address] [address] [address] [place] [address] Zachary Arroyo MD [address] [place] [address] [address] [place] [address] Clinical Consult Before Scheduling Social History Tobacco Use Types Packs/Day Years [...] on file Legal Sex Male 3: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 Topic: Symptomatic Care >> Nov 12, 2024 11:03 AM Parvin Harman wrote: Caller has new symptoms and is seeking care. Age Range/Symptom: Adult: 18+ - Pain - present for 3 days or more OR 7 or less severity on a 0-10 scale (10 being worst) Does patient have any of the following other urgent symptoms? No urgent symptoms requiring warm call transfer Caller Name: Remy Araya Callback Number: [phone] (home) Call Notes: back/shoulder/abdomin pain 4xdays DATABASE ADMINISTRATOR documented in this encounter Plan of Treatment Upcoming Encounters Date Type Department Care Team (Late st Contact Info) Description 04/13/2025 12:00 PM CDT Appointment [facility] Echo [address] [place] [address] Sandeep Randolph MD [address] [place] [phone] 08/19/2025 10:20 AM CDT Office Visit [facility] [address] [place] [phone] Wilfrid Montoya, CLOTH EXAMINER HAND [address] [place] [phone] 08/24/2025 9:00 AM CDT Office Visit [facility] [address] [facility] [address] [place] [address] Renetta Still NP 448 [facility] [address] [place] [address] documented as of this encounter Visit Diagnoses Not on filedocumented in this encounter Care Teams Mold Cleaning And Storage Supervisor Relationship Specialty Start Date End Date Zachary Arroyo MD 448 [facility] [address] [place] [address] PCP - General Family Practice 07/29/23 documented as of this encounter
--- OUTSIDE RECORDS SUMMARY | 2025-04-09 14:44 | XMS_ITS | Encounter Summary ---
Author Organization [facility] Address 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 * Telephone Encounter - Ana Rodriguez RN - 04/05/2025 4:25 PM CDT ----- Message from Dr. Sandeep Randolph sent at 04/05/2025 3:15 PM CDT ----- Okay to hold Brilinta for 5 days prior to procedure while continuing other GDMT uninterrupted and then restarting postoperatively once hemostasis achieved and okay with the surgeon. Please educate permanency precautions. Thank you. ----- Message ----- From: Ana Rodriguez RN Sent: 04/05/2025 3:09 PM CDT To: Sandeep Randolph MD Please advise thank you ----- Message ----- From: Gina Stevens RN Sent: 04/05/2025 7:25 AM CDT To: Ana Rodriguez RN ----- Message ----- From: Cat Ge Sent: 04/02/2025 11:28 AM CDT To: [facility] Cardiology [facility] Hosp Nurses Invasive 1 Dr. Tellez would like to do epidural steroid injection for this patient. This requires holding Brillinta for 5 days prior to procedure. Would this be ok? documented in this encounter Plan of Treatment Upcoming Encounters Date Type Department Care Team (Late st Contact Info) Description 04/13/2025 12:00 PM CDT Appointment [facility] Echo [address] [place] [address] Sandeep Randolph MD [address] [place] [phone] 08/19/2025 10:20 AM CDT Office Visit [facility] [address] [place] [phone] Wilfrid Montoya ARNP [address] [place] [phone] 08/24/2025 9:00 AM CDT Office Visit [facility] Family Medicine [facility] [address] [facility] [address] [place] [address] Renetta Still NP 448 [facility] [address] [place] [address] documented as of this encounter Visit Diagnoses Not on filedocumented in this encounter Care Teams Skin Fitter Relationship Specialty Start Date End Date Zachary Arroyo MD 448 [facility] [address] [place] [address] PCP - General Family Practice 07/29/23 documented as of this encounter
--- OUTSIDE RECORDS SUMMARY | 2025-04-09 14:45 | XMS_ITS | Encounter Summary ---
Author Organization [facility] Address 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 [address] Sandeep Randolph MD [address] [place] [phone] 08/19/2025 10:20 AM CDT Office Visit [facility] [address] [place] [address] Wilfrid Montoya ARNP [address] [place] [address] 08/24/2025 9:00 AM CDT Office Visit [facility] Family Medicine [facility] [address] [facility] [address] [place] [address] Renetta Still NP 448 [facility] [address] [place] [address] documented as of this encounter Visit Diagnoses Not on filedocumented in this encounter Care Teams Associate Biological Sales Relationship Specialty Start Date End Date Zachary Arroyo MD [address] [place] [address] [address] [place] [address] PCP - General Family Practice 07/29/23 documented as of this encounter
--- NOTE | 2025-04-09 16:27 | PC.OT ---
Hold OT eval per nursing; will attempt again at later time.
[2025-04-09] MEDS: hyDROXYzine 25 mg Capsule 50 MG PO (20:15)
[2025-04-09] MEDS: trazodone 50 mg Tablet PO (20:15)
[2025-04-09 20:50] VITALS: BP 128/74; PULSE 106; RESP 17; TEMP 36.7; O2SAT 95
[2025-04-10] MEDS: gabapentin 300 mg Capsule PO ×4 (01:51→20:02)
[2025-04-10 06:00] VITALS: BP 136/90; PULSE 92; RESP 19; TEMP 37.4; O2SAT 95
[2025-04-10] MEDS: acetaminophen 325 mg Tablet 650 MG PO ×2 (06:33→17:52)
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
[2025-04-10 09:32] VITALS: BP 136/90
[2025-04-10] MEDS: losartan 50 mg Tablet PO (09:32)
[2025-04-10] MEDS: amlodipine 10 mg Tablet PO (09:32)
[2025-04-10] MEDS: baclofen 10 mg Tablet PO (09:33)
[2025-04-10] MEDS: atorvastatin 40 mg Tablet PO (09:33)
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
--- NOTE | 2025-04-10 10:05 | XRR_ITS ---
PROCEDURE INFORMATION: Exam: XR Right Hand Exam date and time: 04/10/2025 11:13 AM Age: 59 years old Clinical indication: Right; RT hand pain after punching wall; Painswelling to RT 3rd digit TECHNIQUE: Imaging protocol: Radiologic exam of the right hand. Views: 3 or more views. COMPARISON: No relevant prior studies available. FINDINGS: Bones/joints: Foreshortening of the fifth distal phalanx is chronic. No acute fractures. Old 5th metacarpal fracture deformity. Soft tissues: Soft tissue swelling of the distal 5th digit. XR/XR hand RT min 3V* [id number] IMPRESSION: No acute findings.
--- NOTE | 2025-04-10 12:20 | PC.NURSE ---
Pt's picked up pt's romero money in the amount of $561.00 also his wallet and phone. Pt released the belongings to his and signed the pt belongings form.
[2025-04-10 14:00] VITALS: BP 140/97; PULSE 95; RESP 16; TEMP 37.4; O2SAT 95
[2025-04-10] MEDS: ibuprofen 600 mg Tablet PO ×2 (14:12→20:18)
[2025-04-10] MEDS: nicotine 4 mg lozenge MUCOUS MEM ×2 (18:00→20:38)
[2025-04-10] MEDS: trazodone 50 mg Tablet PO (20:18)
[2025-04-10] MEDS: hyDROXYzine 25 mg Capsule 50 MG PO (20:18)
[2025-04-10 20:41] VITALS: BP 107/72; PULSE 88; RESP 18; TEMP 37.4; O2SAT 97
[2025-04-10 20:50] VITALS: BP 107/72; PULSE 88; RESP 18; TEMP 37.4; O2SAT 97
[2025-04-11 06:00] VITALS: BP 124/80; PULSE 78; RESP 17; TEMP 36.4; O2SAT 93
[2025-04-11] MEDS: nicotine 4 mg lozenge MUCOUS MEM ×4 (06:43→20:18)
[2025-04-11] MEDS: amlodipine 10 mg Tablet PO (08:04)
[2025-04-11] MEDS: gabapentin 300 mg Capsule PO ×3 (08:04→20:18)
[2025-04-11] MEDS: atorvastatin 40 mg Tablet PO (08:04)
[2025-04-11] MEDS: baclofen 10 mg Tablet PO (08:04)
[2025-04-11] MEDS: ibuprofen 600 mg Tablet PO (08:04)
[2025-04-11 08:05] VITALS: BP 124/80
[2025-04-11] MEDS: losartan 50 mg Tablet PO (08:05)
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
[2025-04-11 14:00] VITALS: BP 111/73; PULSE 88; RESP 17; TEMP 36.6; O2SAT 96
[2025-04-11] MEDS: ARIPiprazole 10 mg Tablet 5 MG PO (14:23)
[2025-04-11 20:48] VITALS: BP 115/72; PULSE 89; RESP 18; TEMP 36.6; O2SAT 94
[2025-04-12 06:00] VITALS: BP 138/79; PULSE 85; RESP 17; TEMP 36.6; O2SAT 94
[2025-04-12 08:33] VITALS: BP 138/79
[2025-04-12] MEDS: atorvastatin 40 mg Tablet PO (08:33)
[2025-04-12] MEDS: baclofen 10 mg Tablet PO (08:33)
[2025-04-12] MEDS: ARIPiprazole 10 mg Tablet 5 MG PO ×2 (08:33→18:53)
[2025-04-12] MEDS: losartan 50 mg Tablet PO (08:33)
[2025-04-12] MEDS: gabapentin 300 mg Capsule PO ×3 (08:33→21:11)
[2025-04-12] MEDS: amlodipine 10 mg Tablet PO (08:33)
[2025-04-12] MEDS: nicotine 4 mg lozenge MUCOUS MEM ×4 (08:34→18:54)
[2025-04-12 14:00] VITALS: BP 140/91; PULSE 71; RESP 16; TEMP 36.8; O2SAT 96
--- NOTE | 2025-04-12 14:35 | W.PM.NPUPNS ---
Subjective NPU Subjective: Patient presented today reporting that he responded well to the initiation dose of Abilify. He reports that he had no side effects and felt a little better from the standpoint of paranoia. We discussed the risks, benefits and alternatives of increasing the Abilify to 10 mg p.o. daily and he understood and agreed to proceed as is documented in this note. Mental Status Exam MSE Comments: This is an overweight versus obese white male in hospital scrubs with adequate grooming and eye contact. No abnormal movements except for mild psychomotor retardation secondary to medication. More cooperative with exam in no acute distress. Speech was slightly decreased rate and volume. Mood described as feeling paranoid, affect congruent. Thought process appeared linear thought content: Patient denied suicidal homicidal ideation, there were no delusions reported but continued paranoia likely due to and surrounding his methamphetamine use noted, he denied any auditory or visual hallucinations. Denies thoughts of self-harm or harm to others, enjoys being with family. Reports perceptual disturbances related to methamphetamine use. Experiences anxiety and panic attacks, and sometimes feels depressed with feelings of helplessness, hopelessness, and worthlessness. Difficulty sleeping. Stressors include legal issues, substance use, and living situation. Mood described as got a chance and looking forward to seeing his . Attention and concentration were intact and memory was appeared reliable but none were formally tested. He was alert and oriented x 3. Insight and judgment appeared fair impulse control limited versus impaired. Vitals/I&O/Wt Last Vital Signs Temp 98.3 F 04/12/25 14:00 Pulse 71 04/12/25 14:00 Resp 16 04/12/25 14:00 BP 140/91 04/12/25 14:00 Pulse Ox 96 04/12/25 14:00 O2 Del Method Room Air 04/12/25 14:00 Weight last 48 hrs Weight 93.803 kg Data NPU 04/09/25 05:44 04/09/25 05:44 A&P Assessment and plan (1) Substance abuse: (2) Drug-induced psychotic disorder: (3) Acute psychosis: Plan This is a 59 year-old male with concerns for significant substance use disorders likely substance-induced psychosis and recent legal issues who had been mostly unable to interview prior to this morning. The patient exhibits perceptual disturbances likely induced by methamphetamine use, which is consistent with the known effects of the substance. There is a history of anxiety and depression, with episodes of panic attacks. The patient has a history of substance use, including methamphetamine, alcohol, and tobacco, which may contribute to the current mental health challenges. There is no evidence of paranoia, hallucinations, or PTSD when not using substances. The patient has experienced periods of feeling helpless and worthless, which may indicate underlying depressive symptoms. Plan: 1. Restart outpatient medications and consider psychiatric medications. Started Abilify 5 mg p.o. daily for paranoia. Increase to 10 mg p.o. daily 2. Continue every 15 minute checks for safety. 3. Encourage individual, group and milieu therapies. 4. Encourage sober living treatment after discharge at the highest level of care to which he is willing to commit. 5. Initiate CIWA protocol 6. Will gather collateral information. 7. Evaluate against the backdrop of 96-hour hold. PDMP PDMP Reviewed: Not Reviewed Involuntary Hold Information Hold Status: Legal Status: 96 Hour Hold Date/Time Hold Expires: 04/15/25 06:38 Attestations NPU Medical Necessity Statement*: Inpatient hospitalization is medically necessary and the clinically appropriate intervention at this time. We will monitor/initiate medications and make changes as indicated.? The patient?s likely length of stay is 2-4 days. Coding Level of Care Code Acute Code for [facility] Fwd Diagnoses Substance abuse F19.10 Drug-induced psychotic disorder F19.959 Acute psychosis F23
[2025-04-12 20:10] VITALS: BP 149/92; PULSE 88; RESP 18; TEMP 37; O2SAT 95
[2025-04-13 06:00] VITALS: BP 146/97; PULSE 83; RESP 16; O2SAT 94
[2025-04-13 08:22] VITALS: BP 146/97
[2025-04-13] MEDS: gabapentin 300 mg Capsule PO ×3 (08:22→19:48)
[2025-04-13] MEDS: atorvastatin 40 mg Tablet PO (08:22)
[2025-04-13] MEDS: losartan 50 mg Tablet PO (08:22)
[2025-04-13] MEDS: amlodipine 10 mg Tablet PO (08:23)
[2025-04-13] MEDS: nicotine 4 mg lozenge MUCOUS MEM ×3 (08:23→15:13)
[2025-04-13] MEDS: baclofen 10 mg Tablet PO (08:23)
[2025-04-13] MEDS: ARIPiprazole 10 mg Tablet PO (08:23)
[2025-04-13 13:35] VITALS: BP 106/74; PULSE 100; RESP 18; TEMP 36.9
[2025-04-13 19:17] VITALS: BP 115/78; PULSE 101; RESP 18; TEMP 36.6; O2SAT 97
--- NOTE | 2025-04-13 19:59 | P.NPUPN_ITS ---
Subjective NPU 2 Subjective: Patient presented today reporting that he is feeling a lot better. He reports the medication is helping a lot and he denied any side effects of the medication. We discussed discharge tomorrow. Mental Status Exam 2 MSE Comments: This is an overweight versus obese white male in hospital scrubs with adequate grooming and eye contact. No abnormal movements except for mild psychomotor retardation secondary to medication. More cooperative with exam in no acute distress. Speech was slightly decreased rate and volume. Mood described as much better, affect congruent. Thought process appeared linear thought content: Patient denied suicidal homicidal ideation, there were no delusions reported or noted, he denied any auditory or visual hallucinations. Attention and concentration were intact and memory was appeared reliable but none were formally tested. He was alert and oriented x 3. Insight and judgment appeared fair impulse control limited versus impaired. Vitals/I&O/Wt Last Vital Signs Temp 97.9 F 04/13/25 19:17 Pulse 101 H 04/13/25 19:17 Resp 18 04/13/25 19:17 BP 117/80 04/13/25 19:17 Pulse Ox 97 04/13/25 19:17 O2 Del Method Room Air 04/13/25 13:35 Data NPU 04/09/25 05:44 04/09/25 05:44 A&P Assessment and plan (1) Substance abuse: (2) Drug-induced psychotic disorder: (3) Acute psychosis: Plan This is a 59 year-old male with concerns for significant substance use disorders likely substance-induced psychosis and recent legal issues who had been mostly unable to interview prior to this morning. The patient exhibits perceptual disturbances likely induced by methamphetamine use, which is consistent with the known effects of the substance. There is a history of anxiety and depression, with episodes of panic attacks. The patient has a history of substance use, including methamphetamine, alcohol, and tobacco, which may contribute to the current mental health challenges. There is no evidence of paranoia, hallucinations, or PTSD when not using substances. The patient has experienced periods of feeling helpless and worthless, which may indicate underlying depressive symptoms. Plan: 1. Restart outpatient medications and consider psychiatric medications. Started Abilify 5 mg p.o. daily for paranoia. Increased to 10 mg p.o. daily 2. Continue every 15 minute checks for safety. 3. Encourage individual, group and milieu therapies. 4. Encourage sober living treatment after discharge at the highest level of care to which he is willing to commit. 5. Initiate CIWA protocol 6. Will gather collateral information. 7. Evaluate against the backdrop of 96-hour hold. PDMP PDMP Reviewed: Not Reviewed Involuntary Hold Information 2 Hold Status: Legal Status: 96 Hour Hold Date/Time Hold Expires: 04/15/25 06:38 Attestations NPU 2 Medical Necessity Statement*: Inpatient hospitalization is medically necessary and the clinically appropriate intervention at this time. We will monitor/initiate medications and make changes as indicated.? The patient?s likely length of stay is 1 day.. Coding Level of Care Code Acute Code for [facility] Fwd Diagnoses Substance abuse F19.10 Drug-induced psychotic disorder F19.959 Acute psychosis F23
[2025-04-14 06:00] VITALS: BP 117/80; PULSE 70; RESP 16; O2SAT 95
[2025-04-14] MEDS: nicotine 4 mg lozenge MUCOUS MEM ×2 (06:03→08:18)
[2025-04-14 08:15] VITALS: BP 140/77; PULSE 79; RESP 18; TEMP 36.4
[2025-04-14] MEDS: atorvastatin 40 mg Tablet PO (08:17)
[2025-04-14] MEDS: baclofen 10 mg Tablet PO (08:17)
[2025-04-14] MEDS: ARIPiprazole 10 mg Tablet PO (08:17)
[2025-04-14 08:18] VITALS: BP 140/77
[2025-04-14] MEDS: amlodipine 10 mg Tablet PO (08:18)
[2025-04-14] MEDS: losartan 50 mg Tablet PO (08:18)
[2025-04-14] MEDS: gabapentin 300 mg Capsule PO (08:18)
[2025-04-14 13:44] VITALS: BP 140/77; PULSE 79; RESP 18; TEMP 36.4; O2SAT 98
--- NOTE | 2025-04-14 14:34 | DCPLANNER ---
IMM completed on 04/14/2025 @ 2:35pm and pt given copy of rights.
== END 2025-04-14 15:00 | disposition home or self-care (01) | DRG 897 ==
LOC: ER 06:37 → NP 14:42
PROVIDERS: Family Medicine; Admitting Provider Psychiatry & Neurology Psychiatry; Emergency Provider Family Medicine; PCP Family Medicine; Visit Provider Psychiatry & Neurology Psychiatry
DX: F19.959 Other psychoactive substance use, unspecified with psychoactive substance-induced psychotic disorder, unspecified (principal); R45.851 Suicidal ideations; F15.988 Other stimulant use, unspecified with other stimulant-induced disorder; F32.A Depression, unspecified; F43.10 Post-traumatic stress disorder, unspecified; F60.3 Borderline personality disorder; E66.9 Obesity, unspecified; Z68.32 Body mass index [BMI] 32.0-32.9, adult; I10 Essential (primary) hypertension; F17.210 Nicotine dependence, cigarettes, uncomplicated
CPT/HCPCS: 36415; 70450; 71045; 71260; 72125; 73130; 74177; 80048; 80053; 80306; 80307; 81001; 85025; 93005; 96361; 96372; 96374; 97150; 97165; 99285; J2060; J3486; J7030; J9999

== ENCOUNTER → 2025-08-20 09:59 | Outpatient (BNVA) | payer MEDICARE, SELFPAY | PROVIDERS: Visit Provider Internal Medicine Cardiovascular Disease | DX: R07.9 Chest pain, unspecified (principal) | CPT/HCPCS: 93005 ==

== ENCOUNTER 2025-09-15 06:34 | Outpatient (CLI) | payer MEDICARE, SELFPAY ==
--- NOTE | 2025-09-15 | ECG_ITS ---
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 Interpretive Statements EXERCISE STRESS TEST EXERCISE DATA: The patient was exercised by Alexi protocol. Baseline heart rate was 66 beats per minute. Baseline blood pressure was 117/78 millimeters of mercury. Maximal predicted heart rate was 160 beats per minute. Maximum heart rate achieved was 144, which was 90% of the maximum predicted heart rate. Maximum blood pressure was 186/92 millimeters of mercury. Total exercise time was 7 minutes and 19 seconds. Maximum METs achieved was 10.2. The reason for ending the test was maximal effort achieved. The patient complained of shortness of breath during the stress test, which then resolved at the end of the test. ELECTROCARDIOGRAM: BASELINE: Showed sinus rhythm, normal axis, no significant ST-T changes at the baseline noted. [] EXERCISE: At the peak exercise level, [] No significant ST-T changes suggestive of ischemia noted. [] RECOVERY: During the recovery period, heart rate dropped appropriately. No significant ST-T changes in the recovery suggestive of ischemia noted. [] CONCLUSION: 1. Exercise capacity is good. 2. Heart rate response was appropriate 3. Blood pressure response was appropriate 4. Symptoms not suggestive of ischemia. 5. Electrocardiogram portion of the stress test was not suggestive of ischemia. 6. Nuclear scan will be documented separately. Electronically Signed On 09-21-2025 10:57:29 FAMILY PSYCHOLOGIST by Negrito Proctor M.D. [email or web address]
[2025-09-15 06:45] VITALS: BMI 32.8
--- NOTE | 2025-09-15 06:46 | NMCV_ITS ---
NM jen perf SPECT r/s* [id number] Remy Araya Age: 60 Gender: M : 1965 Exam Date: 09/15/2025 07:24 Ordering Phys: Ritchie Contreras MD ([email or web address]) Technologist: MARBELLA Loya Exam Location: [facility] Indications: cp STRESS TEST Please see separate stress test report in [facility] for full findings IMAGE PROTOCOL Rest/Stress 1 Exercise Day Radiopharmaceutical Dose (mCi) Administration Site Administered by Rest: Tc-99m 10.3 IV MARBELLA Loya Sestamibi Stress:Tc-99m 32.4 IV MARBELLA Erazo Sestamibi Rest: 15-Sep-2025 60 Discovery 630 Stress: 15-Sep-2025 30 Discovery 630 Radiopharmaceutical was injected at 85 % maximum heart rate. Images obtained in supine and prone position. SPECT RESULTS Technical Quality: Good Raw Data Analysis: Normal Image Corrections: No attenuation or motion correction applied Summed Stress Score: 3 Summed Rest Score: 9 Summed Difference Score: 0 PERFUSION FINDINGS There is a small area of fixed perfusion defect seen in the apical inferior and inferior whitten. 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 No evidence of ischemia. FUNCTIONAL RESULTS (calculated via Gated SPECT) Stress Image LV EF (%): 67 Stress EDV (mL):96 TID: 0.82 Stress ESV (mL):32 FUNCTIONAL FINDINGS: There is normal left ventricular systolic function. IMPRESSIONS 1. 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 No evidence of ischemia 2. LV systolic function is normal Negrito Proctor MD (Electronically Signed) Final Date: 18 September 2025 11:08 S
[2025-09-15 08:55] VITALS: BP 144/77; PULSE 88
== END 2025-09-15 06:35 | disposition home or self-care (01) ==
LOC: CDL 06:39
PROVIDERS: Visit Provider Internal Medicine Cardiovascular Disease
DX: R07.9 Chest pain, unspecified (principal)
CPT/HCPCS: 36415; 78452; 93017; A9500

== ENCOUNTER 2025-09-16 07:38 | Outpatient (CLI) | payer MEDICARE, SELFPAY ==
--- NOTE | 2025-09-16 07:45 | USCV_ITS ---
Remy Araya Age: 60 Gender: M : 1965 Exam Date: 09/16/2025 07:45 Ordering Phys: Ritchie Contreras MD ([email or web address]) Technologist: WINNIE Exam Location: [facility] [place] Indication: PAD Risk Factors: Previous Vascular Surgery: RIGHT LEFT BP: 97.00 / 66.00 BP: 103.0/ 70.00 0 Waveform Velocity (cm/s) Velocity (cm/s) Waveform Triphasic 71.6 Iliac Prox 56.9 Triphasic Triphasic 84.8 Iliac Mid 64.1 Triphasic Triphasic 84.4 Iliac Distal 74.[address] CLERK 87.0 Triphasic Triphasic 100.0 SFA Prox 81.0 Triphasic Triphasic 79.0 SFA Mid 91.0 Triphasic Triphasic 79.0 SFA Dist 70.0 Triphasic Triphasic 66.0 POP 71.0 Triphasic Triphasic 52.0 DISTRIBUTOR SALES CONSULTANT 48.0 Triphasic Triphasic 53.0 DPA 72.0 Triphasic 1.0 TERRANCE 1.1 FINDINGS Mild to moderate scattered plaques in the iliac and femoral arteries bilaterally. Normal triphasic Doppler waveforms bilaterally Resting TERRANCE 1.0 on the right and 1.1 on the left Patent iliac, femoral, popliteal and infrapopliteal vessels bilaterally CONCLUSIONS Normal resting ABIs bilaterally Mild to moderate diffuse plaques in the iliac and femoral arteries bilaterally No significant arterial obstruction, based on the above findings Dr Coty Bird MD [facility] (Electronically Signed) Final Date: 17 September 2025 15:52 S
== END 2025-09-16 07:39 | disposition home or self-care (01) ==
LOC: RAD 07:38
PROVIDERS: Visit Provider Internal Medicine Cardiovascular Disease
DX: I25.10 Atherosclerotic heart disease of native coronary artery without angina pectoris (principal); M79.605 Pain in left leg; M79.604 Pain in right leg; I70.203 Unspecified atherosclerosis of native arteries of extremities, bilateral legs
CPT/HCPCS: 93925